=== PATIENT | female | born 1980 | race Caucasian/White ===

== ENCOUNTER → 2021-12-02 09:02 | Outpatient (BNVA) | payer OTHER, SELFPAY | PROVIDERS: Visit Provider Psychiatry & Neurology Neurology | DX: G43.909 Migraine, unspecified, not intractable, without status migrainosus (principal); M62.838 Other muscle spasm; G47.33 Obstructive sleep apnea (adult) (pediatric) | CPT/HCPCS: 99212 ==

== ENCOUNTER → 2022-06-29 12:48 | Outpatient (BNVA) | payer OTHER, SELFPAY | PROVIDERS: Visit Provider Psychiatry & Neurology Neurology | DX: G43.909 Migraine, unspecified, not intractable, without status migrainosus (principal); M62.838 Other muscle spasm; G47.33 Obstructive sleep apnea (adult) (pediatric) | CPT/HCPCS: 99212 ==

== ENCOUNTER 2023-02-17 09:28 | Outpatient (AMB) | payer OTHER, SELFPAY ==
--- NOTE | 2023-02-17 09:35 | A.OFFVIS_ITS ---
Intake Vital Signs 02/17/23 09:43 Weight 175 lb 8 oz BP 120/88 Blood Pressure Location Lt brachial Position Sitting Pulse 104 H Pulse Source Pulse Oximeter Pulse Oximetry (%) 98 Oxygen Delivery Method Room Air Intake Visit Reasons: Follow up Intake Note: F?U KARINA [employer] Hand Required: No Allergies acetaminophen [From Percocet] Allergy (Severe, Verified 02/17/23 09:36) Vomiting doxycycline Allergy (Severe, Verified 02/17/23 09:36) rash ibuprofen Allergy (Severe, Verified 02/17/23 09:36) Vomiting nifedipine Allergy (Severe, Verified 02/17/23 09:36) Vomiting oxycodone [From Percocet] Allergy (Severe, Verified 02/17/23 09:36) Vomiting promethazine [From Phenergan] Allergy (Severe, Verified 02/17/23 09:36) dystonic reaction levaquin Allergy (Uncoded 02/17/23 09:36) Unknown HPI HPI Comments History of Present Illness Details 42 y/o female with muscle spasms, migraines, KARINA presents for follow up. Pt reports that she restarted using CPAP a week ago. Pt still having difficulty staying sleep, but she can sleep 5-6 hours some day. Pt reports 3 migraine days per week. She has pounding frontal and occipital headache with light sensitivity. Pt tried sumatriptan but did not help to stop her headache. She uses diclofenac or resting in the dark room to manage headache. She was on Botox for migraine in the past and it was helpful. Pt tried topiramate, nortriptyline but failed for migraine prevention. Gabapentin 600 mg TID helps a lot for muscle twitching. PFSH Medical History Anemia Anxiety Arrhythmia Arthritis CHF (congestive heart failure) Depression GERD (gastroesophageal reflux disease) HTN (hypertension) Kidney stone Migraine Obstructive sleep apnea PTSD (post-traumatic stress disorder) Renal tubular acidosis Surgical History Hx of cholecystectomy Hx of hysterectomy Family History Father Migraine Mother Asthma Allergy Thyroid disease Family/Other Migraine Social History (Updated 02/17/23 @ 09:43 by Marylou Velasco CMA) Alcohol intake: never Patient Tobacco Use Status: Current everyday Tobacco user Review of Systems Const All systems reviewed & are unremarkable except as noted in HPI and below Physical Exam Vital Signs: Last Vital Signs Pulse 104 H 02/17/23 09:43 BP 120/88 02/17/23 09:43 Pulse Ox 98 02/17/23 09:43 Oxygen Delivery Method Room Air 02/17/23 09:43 Const General: cooperative, healthy appearing, comfortable and no acute distress Nutritional Appearance: average body habitus Orientation/consciousness: patient oriented x3 HEENT Head: Yes normal to inspection, Yes normocephalic and Yes atraumatic Face and sinus: Yes normal facial exam Eyes Pupils: Equal, round and reactive pupils present Neck Other: tightness in shalonda trapezius Neck: Yes normal visual inspection Neuro General: patient oriented x3, gait normal, tone normal, moves all extremities, no focal motor deficits and CN's II-XI intact bilaterally Cranial nerves: Yes Equal, round and reactive pupils present and Yes Normal facial strength present Cognition (Neuro): normal cognition Deep tendon reflexes (DTR's): Right triceps reflex intensity grade: 2+, Left triceps reflex intensity grade: 2+, Rt Biceps (C5, C6): 2+, Left biceps reflex intensity grade: 2+, Right brachioradialis reflex intensity grade: 2+, Left brachioradialis reflex intensity grade: 2+, Right patellar reflex intensity grade: 2+ and Left patellar reflex intensity grade: 2+ Coordination: [id number] test normal Assessment & Plan Assessment & Plan (1) Migraine: Code(s): G43.909 - Migraine, unspecified, not intractable, without status migrainosus (2) Muscle spasm: Code(s): M62.838 - Other muscle spasm (3) Obstructive sleep apnea: Code(s): G47.33 - Obstructive sleep apnea (adult) (pediatric) Plan Continue to use CPAP as it can help with sleep and migraines, muscle spasms. Stressed compliance, use CPAP nightly and more than 4 hours. Continue to take gabapentin 300mg 2 tabs tid for muscle spasm. Continue flexeril 5mg tid. Start propranolol 10 mg BID for migraine prevention. Advised patient to track migraine frequency and intensity. Will consider Botox of Emgality at the next visit. Medications: New propranolol 10 mg PO BID 30 days 60 tabs 1RF Coding Level of Care Code Est Pt Level 4 (62620) Diagnoses Migraine G43.909 Muscle spasm M62.838 Obstructive sleep apnea G47.33
[2023-02-17 09:43] VITALS: BP 120/88; PULSE 104; O2SAT 98
== END 2023-02-17 10:06 | disposition home or self-care (01) ==
PROVIDERS: Visit Provider Nurse Practitioner Family
DX: G43.909 Migraine, unspecified, not intractable, without status migrainosus (principal); M62.838 Other muscle spasm; G47.33 Obstructive sleep apnea (adult) (pediatric)
CPT/HCPCS: 99214

== ENCOUNTER → 2023-02-17 09:28 | Outpatient (BNVA) | payer OTHER, SELFPAY | PROVIDERS: Visit Provider Nurse Practitioner Family ==

== ENCOUNTER 2023-05-03 09:59 | Outpatient (AMB) | payer OTHER, SELFPAY ==
[2023-05-03 10:01] VITALS: BP 114/72; PULSE 101; O2SAT 98; BMI 31.3
--- NOTE | 2023-05-03 10:01 | MHC.OFFVIS ---
Intake Vital Signs 05/03/23 10:01 Height 5 ft 3 in Weight 176 lb 8 oz BMI 31.3 BP 114/72 Blood Pressure Location Lt brachial Position Sitting Pulse 101 H Pulse Source Pulse Oximeter Pulse Oximetry (%) 98 Oxygen Delivery Method Room Air Intake Visit Reasons: 2m Follow up -LVM Intake Note: Pt presents to the office today for a 2 month follow up for migraines. Pt states she has been doing a little better with the medication that she was given. Pt states her migraines only last about 2 days instead of 4 since taking the medications. Pt states her migraines are more intense though when she has them. Allergies acetaminophen [From Percocet] Allergy (Severe, Verified 05/03/23 10:03) Vomiting doxycycline Allergy (Severe, Verified 05/03/23 10:03) rash ibuprofen Allergy (Severe, Verified 05/03/23 10:03) Vomiting nifedipine Allergy (Severe, Verified 05/03/23 10:03) Vomiting oxycodone [From Percocet] Allergy (Severe, Verified 05/03/23 10:03) Vomiting promethazine [From Phenergan] Allergy (Severe, Verified 05/03/23 10:03) dystonic reaction levaquin Allergy (Uncoded 05/03/23 10:03) Unknown HPI HPI Comments History of Present Illness Details 42 y/o female with muscle spasms, migraines, KARINA presents for follow up. Pt is not compliant CPAP. She can't sleep with CPAP, wants to discontinue. Pt reports that propranolol helped to reduce the migraine frequency a little bit but caused more intense headache. Pt reports that still has 2-3 migraine days per week. She has pounding frontal and occipital headache with light sensitivity. Pt tried sumatriptan but did not help to stop her headache. She uses Tylenol 1000 mg daily for body ache, and it also helps her headache a little bit. She was on Botox for migraine in the past and it was helpful. Pt tried topiramate, nortriptyline but failed for migraine prevention. Gabapentin 600 mg TID helps a lot for muscle twitching. [facility] Medical History Arrhythmia CHF (congestive heart failure) PTSD (post-traumatic stress disorder) Kidney stone Renal tubular acidosis HTN (hypertension) GERD (gastroesophageal reflux disease) Anxiety Depression Obstructive sleep apnea Migraine Arthritis Anemia Surgical History Hx of hysterectomy Hx of cholecystectomy Family History Father Migraine Mother Asthma Allergy Thyroid disease Family/Other Migraine Social History (Updated 05/03/23 @ 10:05 by Laquita Lau MA) Alcohol intake: never Patient Tobacco Use Status: Former Tobacco user e-Cigarette/Vaping Use: Currently Using Review of Systems Const All systems reviewed & are unremarkable except as noted in HPI and below Physical Exam Vital Signs: Last Vital Signs Pulse 101 H 05/03/23 10:01 BP 114/72 05/03/23 10:01 Pulse Ox 98 05/03/23 10:01 Oxygen Delivery Method Room Air 05/03/23 10:01 BMI result Body Mass Index 31.3 Const General: cooperative, healthy appearing, comfortable and no acute distress Nutritional Appearance: average body habitus Orientation/consciousness: patient oriented x3 HEENT Head: Yes normal to inspection, Yes normocephalic and Yes atraumatic Face and sinus: Yes normal facial exam Eyes Pupils: Equal, round and reactive pupils present Neck Other: tightness in shalonda trapezius Neck: Yes normal visual inspection Neuro General: patient oriented x3, gait normal, tone normal, moves all extremities, no focal motor deficits and CN's II-XI intact bilaterally Cranial nerves: Yes Equal, round and reactive pupils present and Yes Normal facial strength present Cognition (Neuro): normal cognition Deep tendon reflexes (DTR's): Right triceps reflex intensity grade: 2+, Left triceps reflex intensity grade: 2+, Rt Biceps (C5, C6): 2+, Left biceps reflex intensity grade: 2+, Right brachioradialis reflex intensity grade: 2+, Left brachioradialis reflex intensity grade: 2+, Right patellar reflex intensity grade: 2+ and Left patellar reflex intensity grade: 2+ Coordination: [id number] test normal Assessment & Plan Assessment & Plan (1) Muscle spasm: Code(s): M62.838 - Other muscle spasm (2) Obstructive sleep apnea: Code(s): G47.33 - Obstructive sleep apnea (adult) (pediatric) (3) Chronic migraine without aura: Code(s): G43.709 - Chronic migraine without aura, not intractable, without status migrainosus Plan Advised patient to try Emgality monthly injection for migraine prevention. Continue to take gabapentin 300mg 5 tabs a day for muscle spasm. Continue flexeril 5mg tid. Continue propranolol 10 mg BID for migraine prevention. Advised patient to track migraine frequency and intensity. Medications: New galcanezumab-gnlm (Emgality Pen) 120 mg subcut ONCE 30 days 30 mL 6RF Coding Level of Care Code Est Pt Level 4 (16799) Diagnoses Muscle spasm M62.838 Obstructive sleep apnea G47.33 Chronic migraine without aura G43.709
== END 2023-05-03 10:35 | disposition home or self-care (01) ==
PROVIDERS: Visit Provider Nurse Practitioner Family
DX: M62.838 Other muscle spasm (principal); G47.33 Obstructive sleep apnea (adult) (pediatric); G43.709 Chronic migraine without aura, not intractable, without status migrainosus
CPT/HCPCS: 99214

== ENCOUNTER → 2023-05-03 09:59 | Outpatient (BNVA) | payer OTHER, SELFPAY | PROVIDERS: Visit Provider Nurse Practitioner Family ==

== ENCOUNTER 2023-09-04 09:26 | Outpatient (AMB) | payer OTHER, SELFPAY ==
--- NOTE | 2023-09-04 09:42 | MHC.OFFVIS ---
Intake Vital Signs 09/04/23 09:49 Height 5 ft 3 in Weight 177 lb BMI 31.4 BP 110/78 Blood Pressure Location Lt brachial Position Sitting Pulse 98 Pulse Source Pulse Oximeter Pulse Oximetry (%) 99 Oxygen Delivery Method Room Air Intake Visit Reasons: 4 mo f/u-Confirmed Intake Note: Patient presents for 4 month f/u. Allergies acetaminophen [From Percocet] Allergy (Severe, Verified 09/04/23 09:45) Vomiting doxycycline Allergy (Severe, Verified 09/04/23 09:45) rash ibuprofen Allergy (Severe, Verified 09/04/23 09:45) Vomiting nifedipine Allergy (Severe, Verified 09/04/23 09:45) Vomiting oxycodone [From Percocet] Allergy (Severe, Verified 09/04/23 09:45) Vomiting promethazine [From Phenergan] Allergy (Severe, Verified 09/04/23 09:45) dystonic reaction levaquin Allergy (Uncoded 05/03/23 10:03) Unknown HPI HPI Comments History of Present Illness Details 43 y/o female with muscle spasms, migraines, KARINA presents for follow up. Pt is not compliant CPAP. She can't sleep with CPAP, so she returned CPAP. Pt reports that propranolol helped to reduce the migraine frequency but caused more intense headache. Pt reports that still has 2-3 migraine days per week. She has pounding frontal and occipital headache with light sensitivity. Pt tried sumatriptan but did not help to stop her headache. She uses Tylenol 1000 mg daily for body ache, and it also helps her headache a little bit. She was on Botox for migraine in the past and it was helpful. Pt tried topiramate, nortriptyline but failed for migraine prevention. She started Emgality injection for migraine prevention. She had first dose on 08/16. Gabapentin 600 mg TID helps a lot for muscle twitching. [facility] Medical History Arrhythmia CHF (congestive heart failure) PTSD (post-traumatic stress disorder) Kidney stone Renal tubular acidosis HTN (hypertension) GERD (gastroesophageal reflux disease) Anxiety Depression Obstructive sleep apnea Migraine Arthritis Anemia Surgical History Hx of hysterectomy Hx of cholecystectomy Family History Father Migraine Mother Asthma Allergy Thyroid disease Family/Other Migraine Social History Alcohol intake: never Patient Tobacco Use Status: Former Tobacco user e-Cigarette/Vaping Use: Currently Using Review of Systems Const All systems reviewed & are unremarkable except as noted in HPI and below Physical Exam Vital Signs: Last Vital Signs Pulse 98 09/04/23 09:49 BP 110/78 09/04/23 09:49 Pulse Ox 99 09/04/23 09:49 Oxygen Delivery Method Room Air 09/04/23 09:49 BMI result Body Mass Index 31.4 Const General: cooperative, healthy appearing, comfortable and no acute distress Nutritional Appearance: average body habitus Orientation/consciousness: patient oriented x3 HEENT Head: Yes normal to inspection, Yes normocephalic and Yes atraumatic Face and sinus: Yes normal facial exam Eyes Pupils: Equal, round and reactive pupils present Neck Other: tightness in shalonda trapezius Neck: Yes normal visual inspection Neuro General: patient oriented x3, gait normal, tone normal, moves all extremities, no focal motor deficits and CN's II-XI intact bilaterally Cranial nerves: Yes Equal, round and reactive pupils present and Yes Normal facial strength present Cognition (Neuro): normal cognition Deep tendon reflexes (DTR's): Right triceps reflex intensity grade: 2+, Left triceps reflex intensity grade: 2+, Rt Biceps (C5, C6): 2+, Left biceps reflex intensity grade: 2+, Right brachioradialis reflex intensity grade: 2+, Left brachioradialis reflex intensity grade: 2+, Right patellar reflex intensity grade: 2+ and Left patellar reflex intensity grade: 2+ Coordination: [id number] test normal Assessment & Plan Assessment & Plan (1) Muscle spasm: Code(s): M62.838 - Other muscle spasm (2) Obstructive sleep apnea: Code(s): G47.33 - Obstructive sleep apnea (adult) (pediatric) (3) Chronic migraine without aura: Code(s): G43.709 - Chronic migraine without aura, not intractable, without status migrainosus Plan Continue to have monthly Emgality and mornitor the migraine frequency and intensity. Continue propranolol 10 mg BID, magnesium 400 mg qHS and vitamin B2 400 mg q daily for migraine prevention. Advised patient to track migraine frequency and intensity. Will try Botox if Emgality does not help to reduce migraine. Continue to take gabapentin 600 mg TID for muscle spasm and twitching. Continue flexeril 5mg tid. Wt reduction advised. Medications: New riboflavin (vitamin B2) 400 mg PO DAILY 30 tabs 6RF 30 days Coding Level of Care Code Est Pt Level 4 (99600) Diagnoses Muscle spasm M62.838 Obstructive sleep apnea G47.33 Chronic migraine without aura G43.709
[2023-09-04 09:49] VITALS: BP 110/78; PULSE 98; O2SAT 99; BMI 31.4
== END 2023-09-04 10:06 | disposition home or self-care (01) ==
PROVIDERS: Visit Provider Nurse Practitioner Family
DX: M62.838 Other muscle spasm (principal); G47.33 Obstructive sleep apnea (adult) (pediatric); G43.709 Chronic migraine without aura, not intractable, without status migrainosus
CPT/HCPCS: 99214

== ENCOUNTER → 2023-09-04 09:26 | Outpatient (BNVA) | payer OTHER, SELFPAY | PROVIDERS: Visit Provider Nurse Practitioner Family ==

== ENCOUNTER 2024-01-01 09:50 | Outpatient (AMB) | payer OTHER, SELFPAY ==
[2024-01-01 09:58] VITALS: BP 94/72; PULSE 89; O2SAT 99; BMI 32.4
--- NOTE | 2024-01-01 09:58 | A.OFFVIS_ITS ---
Vital Signs 01/01/24 09:58 Height 5 ft 3 in Weight 183 lb BMI 32.4 BP 94/72 Blood Pressure Location Rt brachial Position Sitting Pulse 89 Pulse Source Pulse Oximeter Pulse Oximetry (%) 99 Oxygen Delivery Method Room Air Intake Visit Reasons: 4m follow up migraine-CONF Intake Note: Patient presents for 4 month follow up migraines. patient still having headaches, had a reaction to emgality had a rash around the belly she stopped the shots. Allergies acetaminophen [From Percocet] Allergy (Severe, Verified 01/01/24 10:03) Vomiting doxycycline Allergy (Severe, Verified 01/01/24 10:03) rash ibuprofen Allergy (Severe, Verified 01/01/24 10:03) Vomiting nifedipine Allergy (Severe, Verified 01/01/24 10:03) Vomiting oxycodone [From Percocet] Allergy (Severe, Verified 01/01/24 10:03) Vomiting promethazine [From Phenergan] Allergy (Severe, Verified 01/01/24 10:03) dystonic reaction levaquin Allergy (Uncoded 01/01/24 10:03) Unknown Medication List - Last Reconciled 01/01/24 by CARINA Campos amlodipine 5 mg PO DAILY buspirone 15 mg PO TID cyanocobalamin (vitamin B-12) (Vitamin B-12) 500 mcg PO DAILY cyclobenzaprine 5 mg PO TID PRN desvenlafaxine succinate ER (Pristiq) 50 mg PO DAILY diclofenac sodium 75 mg PO BID fluoxetine 40 mg PO DAILY gabapentin 600 mg (2 x 300 mg) PO TID 30 days galcanezumab-gnlm (Emgality Pen) 120 mg subcut ONCE 30 days hydrochlorothiazide 25 mg PO DAILY levothyroxine 50 mcg PO DAILY magnesium oxide 400 mg PO DAILY multivitamin (Daily Multi-Vitamin tablet) 1 tab PO DAILY ondansetron HCl 8 mg PO Q12H pantoprazole 20 mg PO DAILY pilocarpine HCl 7.5 mg PO BID PRN potassium citrate ER 10 mEq PO TID prazosin 1 mg PO BEDTIME propranolol 10 mg PO BID 90 days pyridoxine (vitamin B6) (Vitamin B-6) 100 mg PO DAILY riboflavin (vitamin B2) 400 mg PO DAILY 30 days trazodone 100 mg PO BEDTIME HPI Comments Details: 43-yr-old female presents for f/u visit of migraine. Pt denies any significant interval medical changes. Pt reports she started Emgality, took 3 doses. Unfortunately, it was not very effective and caused prolonged bothersome injection site reaction despite trying to take Benadryl w/ the injection. She is currently having 3 migraine days (severe migraine attack can last 3 days), 2-3 milder headache, and 1-2 headache free days per week. She has chronic neck tightness. No shooting pain. She was dx'd w/ sleep apnea several yrs ago. Did not tolerate CPAP. Still has snoring, fatigue. She sees a therapist for her mood weekly- which is beneficial. Baseline headache characteristics: Starts as a dull throbbing pain in her bilateral temples and occipital region- more so on left, if severe may see lightening bolts, then her head feels like it starts to swim a bit,. May be f/b sharp stabbing pains in bilateral temples and left occipital region. Eventually this becomes holocranial. A/w photophobia, mild phonophobia, nausea, dizziness- feels like she is drifting w/ movement or external spinning, cognitive difficulties, activity intolerance. [facility] Medical History Arrhythmia CHF (congestive heart failure) PTSD (post-traumatic stress disorder) Kidney stone Renal tubular acidosis HTN (hypertension) GERD (gastroesophageal reflux disease) Anxiety Depression Obstructive sleep apnea Migraine Arthritis Anemia Surgical History Hx of hysterectomy Hx of cholecystectomy Family History Father Migraine Mother Asthma Allergy Thyroid disease Family/Other Migraine Social History Alcohol intake: never Patient Tobacco Use Status: Former Tobacco user e-Cigarette/Vaping Use: Currently Using Physical Exam Vital Signs: Last Vital Signs Pulse 89 01/01/24 09:58 BP 94/72 01/01/24 09:58 Pulse Ox 99 01/01/24 09:58 Oxygen Delivery Method Room Air 01/01/24 09:58 BMI result Body Mass Index 32.4 Const General: cooperative and no acute distress Orientation/consciousness: patient oriented x3 Resp Effort & Inspection: normal respiratory effort and able to speak in complete sentences Neuro Other: Bilateral posterior cervical tightness. Cervical ROM: full Left Spurling: normal Right Spurling: normal. General: patient oriented x3 Cranial nerves: Yes CN's II-XII intact bilaterally Cognition (Neuro): normal cognition Psych Appearance: grossly normal Mental Status: mental status grossly normal Speech and movement: Normal speech and movement present Affect: normal affect Attitude: cooperative Assessment & Plan Assessment & Plan (1) Chronic migraine without aura: Code(s): G43.709 - Chronic migraine without aura, not intractable, without status migrainosus Category: Medical (2) Migraine with aura: Code(s): G43.109 - Migraine with aura, not intractable, without status migrainosus Category: Medical (3) Obstructive sleep apnea: Code(s): G47.33 - Obstructive sleep apnea (adult) (pediatric) Category: Medical (4) Fatigue: Code(s): R53.83 - Other fatigue Category: Medical (5) Snoring: Code(s): R06.83 - Snoring Category: Medical Plan Pt advised to undergo HST to assess status of sleep apnea. For overall headache management: Continue to optimize good self-care, including but not limited to eating a healthy diet, drinking enough fluids (typically 64 oz per day), maintaining a good sleep routine, and engaging in regular physical activity (typically 30-45 minutes of moderate physical activity 5 days per week). To help us better understand your headache: Track your headaches. For acute headache treatment: Trial Rizatriptan 5-10mg prn, max 2 tabs per day. Potential adverse effects of triptans, including but not limited to nausea, fatigue, chest tightness/tingling (usually passes within a few minutes), medication overuse headaches. Previous acute migraine medication trials: Promethazine caused dystonia. Sumatriptan- not tolerated- GI s/e. Acute migraine medication contraindications: None at this time. For chronic migraine headache prevention medication: Continue Riboflavin 400mg qam Continue Magnesium 400mg qhs Continue propranolol 10mg bid- tolerated welll, but cannot increase d/t hypotensive BP. Start Botox 155 units IM q 12 weeks. Previous migraine prevention medication trials: Nortriptyline- ineffective after > 12 weeks. Topiramate- ineffective after > 12 weeks, Depakote- not tolerated, made her headaches worse. Emgality- ineffective after 3 months and caused bother injection site reaction. Currently on Pritiq for mood/anxiety- but does not help headaches. Gabapentin- used for muscle twitching/involuntary movements, but not very helpful for headaches. Botox- previously was helpful in reducing severity and frequency of attacks. Migraine prevention medication contraindications: Topiramate d/t h/o multiple kidney stones. Follow-up in 3-6 months or sooner prn. Orders: Orders RT home sleep study 01/01/24 G47.33 - Obstructive sleep apnea (adult) (pediatric), R06.83 - Snoring, R53.83 - Other fatigue Medications: New onabotulinumtoxinA (Botox) inject 155 units IM across forehead, scalp, and neck 200 units IM ONCE 1 ea 3RF 12 weeks G43.709 - Chronic migraine without aura, not intractable, without status migrainosus rizatriptan max 2 tabs per day or 4 tabs per week 5 - 10 mg (0.5 - 1 x 10 mg) PO Q2H PRN 12 tabs 3RF migraine headache 30 days Coding Level of Care Code Est Pt Level 4 (59215) Diagnoses Chronic migraine without aura G43.709 Migraine with aura G43.109 Obstructive sleep apnea G47.33 Fatigue R53.83 Snoring R06.83
== END 2024-01-01 10:58 | disposition home or self-care (01) ==
PROVIDERS: Visit Provider Nurse Practitioner Family
DX: G43.709 Chronic migraine without aura, not intractable, without status migrainosus (principal); G43.109 Migraine with aura, not intractable, without status migrainosus; G47.33 Obstructive sleep apnea (adult) (pediatric); R53.83 Other fatigue; R06.83 Snoring
CPT/HCPCS: 99214

== ENCOUNTER → 2024-01-01 09:50 | Outpatient (BNVA) | payer OTHER, SELFPAY | PROVIDERS: Visit Provider Nurse Practitioner Family ==

== ENCOUNTER → 2024-02-08 12:58 | Outpatient (REF) | payer OTHER, SELFPAY | LOC: HO.SL 12:58 | PROVIDERS: PCP Family Medicine; Visit Provider Nurse Practitioner Family | DX: Z13.89 Encounter for screening for other disorder (principal) ==

== ENCOUNTER 2024-03-29 08:55 | Outpatient (AMB) | payer OTHER, SELFPAY ==
--- NOTE | 2024-03-29 09:00 | A.OFFVIS_ITS ---
Vital Signs 03/29/24 09:01 Height 5 ft 3 in Weight 182 lb 6 oz BMI 32.3 BP 112/62 Blood Pressure Location Rt brachial Position Sitting Respiration 16 Pulse 94 Pulse Source Pulse Oximeter Pulse Oximetry (%) 99 Oxygen Delivery Method Room Air Intake Visit Reasons: Botox Intake Note: Pt presents to the office for Botox injections for chronic migraines. Automatic Packer Operator Required: No Allergies acetaminophen [From Percocet] Allergy (Severe, Verified 03/29/24 09:01) Vomiting doxycycline Allergy (Severe, Verified 03/29/24 09:01) rash ibuprofen Allergy (Severe, Verified 03/29/24 09:01) Vomiting nifedipine Allergy (Severe, Verified 03/29/24 09:01) Vomiting oxycodone [From Percocet] Allergy (Severe, Verified 03/29/24 09:01) Vomiting promethazine [From Phenergan] Allergy (Severe, Verified 03/29/24 09:01) dystonic reaction levaquin Allergy (Uncoded 03/29/24 09:01) Unknown Medication List - Last Reconciled 03/29/24 by Cleo Santamaria MD amlodipine 5 mg PO DAILY buspirone 15 mg PO TID cholecalciferol (vitamin D3) 50 mcg PO DAILY cyanocobalamin (vitamin B-12) (Vitamin B-12) 500 mcg PO DAILY cyclobenzaprine 10 mg PO TID PRN desvenlafaxine succinate ER (Pristiq) 50 mg PO DAILY diclofenac sodium 75 mg PO BID fluoxetine 60 mg PO DAILY gabapentin 600 mg (2 x 300 mg) PO TID 30 days hydrochlorothiazide 25 mg PO DAILY levothyroxine 50 mcg PO DAILY magnesium oxide 400 mg PO DAILY multivitamin (Daily Multi-Vitamin tablet) 1 tab PO DAILY onabotulinumtoxinA (Botox) 200 units IM ONCE 12 weeks ondansetron HCl 8 mg PO Q12H pantoprazole 20 mg PO DAILY pilocarpine HCl 7.5 mg PO BID PRN potassium citrate ER 10 mEq PO TID prazosin 1 mg PO BEDTIME propranolol 10 mg PO BID 90 days pyridoxine (vitamin B6) (Vitamin B-6) 100 mg PO DAILY riboflavin (vitamin B2) 400 mg PO DAILY 30 days rizatriptan 5 - 10 mg (0.5 - 1 x 10 mg) PO Q2H PRN 30 days trazodone 100 mg PO BEDTIME HPI Comments Details: ? 44y/o female comes for treatment of migraines with botox. ??? Most frequent reported adverse reactions following injection of botox for chronic migraine include neck pain (9%), headache(5%), eyelid ptosis(4%), migraine(4%), muscular weakness(4%), musculuskeletal stiffness(4%), bronchitis(3%), injection site pain (3%), musculoskeletal pain(3%), myalgia(3%), facial paresis(2%), HTN(2%) and muscle spasms(2%) were discussed in detail. ??? Botulinum toxin typeA 200units Lot no [id number] expiration Jun 2026 was diluted with 4 cc of normal saline . ??? Muscles injected- ??? Frontalis 4 sites ??? Procerus 1 site ??? Salesperson Handbags- 2 sites ??? Temporalis- 8 sites ??? Occipitalis- 6 sites ??? Cervical paraspinals- 4 sites ??? Trapezius- 6 sites- 10 units each ??? 5 units each in 31 site ??? Total use- 185units ??? Discarded-15units [facility] Medical History (Updated 03/29/24 @ 09:35 by Cleo Santamaria MD) Chronic migraine without aura, intractable, without status migrainosus Arrhythmia CHF (congestive heart failure) PTSD (post-traumatic stress disorder) Kidney stone Renal tubular acidosis HTN (hypertension) GERD (gastroesophageal reflux disease) Anxiety Depression Obstructive sleep apnea Migraine Arthritis Anemia Surgical History Hx of hysterectomy Hx of cholecystectomy Family History Father Migraine Mother Asthma Allergy Thyroid disease Family/Other Migraine Social History Alcohol intake: never Patient Tobacco Use Status: Former Tobacco user e-Cigarette/Vaping Use: Currently Using Physical Exam Vital Signs: Last Vital Signs Pulse 94 03/29/24 09:01 Resp 16 03/29/24 09:01 BP 112/62 03/29/24 09:01 Pulse Ox 99 03/29/24 09:01 Oxygen Delivery Method Room Air 03/29/24 09:01 BMI result Body Mass Index 32.3 Const General: cooperative and no acute distress Orientation/consciousness: patient oriented x3 Resp Effort & Inspection: normal respiratory effort and able to speak in complete sentences Neuro Other: Bilateral posterior cervical tightness. Cervical ROM: full Left Spurling: normal Right Spurling: normal. General: patient oriented x3 Cranial nerves: Yes CN's II-XII intact bilaterally Cognition (Neuro): normal cognition Psych Appearance: grossly normal Mental Status: mental status grossly normal Speech and movement: Normal speech and movement present Affect: normal affect Attitude: cooperative Office Procedures Botulinum toxin Injection 49366 - Migraine Procedure code (CPT) selection complete Office Meds onabotulinumtoxinA 200 unit solution for injection Performing Provider: Cleo Santamaria MD Performing Location[place] [facility] [place] [facility] Administered by: Cleo Santamaria MD on 03/29/24 09:39 Dose Route Admin Location Dispensed Lot Number Expiration Date [facility] Securities Sales Associate 200 unit subcut 200 units [id number] 06/23/26 6533-0856-69 [employer]ERGAN/BOTOX Comments: see hpi Assessment & Plan Assessment & Plan (1) Chronic migraine without aura, intractable, without status migrainosus: Code(s): G43.719 - Chronic migraine without aura, intractable, without status migrainosus Category: Medical Plan Patient tolerated the procedure well she will call with any side effects Orders: Orders AMB Botulinum toxin Injection Today G43.719 - Chronic migraine without aura, intractable, without status migrainosus Medications: New onabotulinumtoxinA 200 units subcut ONCE 1 ea 0RF migraine G43.719 - Chronic migraine without aura, intractable, without status migrainosus Coding Level of Care Code Est Pt Level 1 (76148) Diagnoses Chronic migraine without aura, intractable, without status migrainosus G43.719 CPT Codes Botox Injection - Botox 3: 64510 - Migraine ([id number])
[2024-03-29 09:01] VITALS: BP 112/62; PULSE 94; RESP 16; O2SAT 99; BMI 32.3
== END 2024-03-29 09:25 | disposition home or self-care (01) ==
PROVIDERS: PCP Family Medicine; Visit Provider Psychiatry & Neurology Neurology
DX: G43.719 Chronic migraine without aura, intractable, without status migrainosus (principal)
CPT/HCPCS: 64615

== ENCOUNTER → 2024-03-29 08:55 | Outpatient (BNVA) | payer OTHER, SELFPAY | PROVIDERS: PCP Family Medicine; Visit Provider Psychiatry & Neurology Neurology | DX: G43.719 Chronic migraine without aura, intractable, without status migrainosus (principal) | CPT/HCPCS: 64615; 99211; J0585 ==

== ENCOUNTER 2024-07-08 07:57 | Outpatient (AMB) | payer OTHER, SELFPAY ==
--- NOTE | 2024-07-08 08:01 | A.OFFVIS_ITS ---
Vital Signs 07/08/24 08:02 Height 5 ft 3 in BP 108/72 Blood Pressure Location Rt brachial Position Sitting Pulse 89 Pulse Source Pulse Oximeter Pulse Oximetry (%) 98 Oxygen Delivery Method Room Air Intake Visit Reasons: BOTOX Clerk To Justice Required: No Accompanied by: Self / Same As Patient Allergies acetaminophen [From Percocet] Allergy (Severe, Verified 07/08/24 08:06) Vomiting doxycycline Allergy (Severe, Verified 07/08/24 08:06) rash ibuprofen Allergy (Severe, Verified 07/08/24 08:06) Vomiting nifedipine Allergy (Severe, Verified 07/08/24 08:06) Vomiting oxycodone [From Percocet] Allergy (Severe, Verified 07/08/24 08:06) Vomiting promethazine [From Phenergan] Allergy (Severe, Verified 07/08/24 08:06) dystonic reaction levaquin Allergy (Uncoded 03/29/24 09:01) Unknown Medication List - Last Reconciled 07/08/24 by Cleo Santamaria MD amlodipine 5 mg PO DAILY buspirone 15 mg PO TID cholecalciferol (vitamin D3) 50 mcg PO DAILY cyanocobalamin (vitamin B-12) (Vitamin B-12) 500 mcg PO DAILY cyclobenzaprine 10 mg PO TID PRN desvenlafaxine succinate ER (Pristiq) 50 mg PO DAILY diclofenac sodium 75 mg PO BID fluoxetine 60 mg PO DAILY gabapentin 600 mg (2 x 300 mg) PO TID 30 days hydrochlorothiazide 25 mg PO DAILY levothyroxine 50 mcg PO DAILY magnesium oxide 400 mg PO DAILY multivitamin (Daily Multi-Vitamin tablet) 1 tab PO DAILY onabotulinumtoxinA (Botox) 200 units IM ONCE 12 weeks ondansetron HCl 8 mg PO Q12H pantoprazole 20 mg PO DAILY pilocarpine HCl 7.5 mg PO BID PRN potassium citrate ER 10 mEq PO TID prazosin 1 mg PO BEDTIME propranolol 10 mg PO BID 90 days pyridoxine (vitamin B6) (Vitamin B-6) 100 mg PO DAILY riboflavin (vitamin B2) 400 mg PO DAILY 30 days rizatriptan 5 - 10 mg (0.5 - 1 x 10 mg) PO Q2H PRN 30 days trazodone 100 mg PO BEDTIME Do you need a note to return to daycare/school/sports/work: No HPI Comments Details: ? 44y/o female comes for treatment of migraines with botox. ??? Most frequent reported adverse reactions following injection of botox for chronic migraine include neck pain (9%), headache(5%), eyelid ptosis(4%), migraine(4%), muscular weakness(4%), musculuskeletal stiffness(4%), bronchitis(3%), injection site pain (3%), musculoskeletal pain(3%), myalgia(3%), facial paresis(2%), HTN(2%) and muscle spasms(2%) were discussed in detail. ??? Botulinum toxin typeA 200units Lot no [id number] expiration Mar 2026 was diluted with 4 cc of normal saline . ??? Muscles injected- ??? Frontalis 4 sites ??? Procerus 1 site ??? Chief Business Officer- 2 sites ??? Temporalis- 8 sites ??? Occipitalis- 6 sites ??? Cervical paraspinals- 4 sites ??? Trapezius- 6 sites- 10 units each ??? 5 units each in 31 site ??? Total use- 185units ??? Discarded-15units PFS Medical History Chronic migraine without aura, intractable, without status migrainosus Arrhythmia CHF (congestive heart failure) PTSD (post-traumatic stress disorder) Kidney stone Renal tubular acidosis HTN (hypertension) GERD (gastroesophageal reflux disease) Anxiety Depression Obstructive sleep apnea Migraine Arthritis Anemia Surgical History Hx of hysterectomy Hx of cholecystectomy Family History Father Migraine Mother Asthma Allergy Thyroid disease Family/Other Migraine Social History Alcohol intake: never Patient Tobacco Use Status: Former Tobacco user e-Cigarette/Vaping Use: Currently Using Physical Exam Vital Signs: Last Vital Signs Pulse 89 07/08/24 08:02 BP 108/72 07/08/24 08:02 Pulse Ox 98 07/08/24 08:02 Oxygen Delivery Method Room Air 07/08/24 08:02 Const General: cooperative and no acute distress Orientation/consciousness: patient oriented x3 Resp Effort & Inspection: normal respiratory effort and able to speak in complete sentences Neuro Other: Bilateral posterior cervical tightness. Cervical ROM: full Left Spurling: normal Right Spurling: normal. General: patient oriented x3 Cranial nerves: Yes CN's II-XII intact bilaterally Cognition (Neuro): normal cognition Psych Appearance: grossly normal Mental Status: mental status grossly normal Speech and movement: Normal speech and movement present Affect: normal affect Attitude: cooperative Office Procedures Botulinum toxin Injection 31005 - Migraine Procedure code (CPT) selection complete Office Meds onabotulinumtoxinA 200 unit solution for injection Performing Provider: Cleo Santamaria MD Performing Location: [facility] [place] [facility] Administered by: Cleo Santamaria MD on 07/08/24 08:33 Dose Route Admin Location Dispensed Lot Number Expiration Date [facility] Packaging Engineer 185 unit subcut 200 units [id number] ALLERGAN/BOTOX Comments: see HPI Assessment & Plan Assessment & Plan (1) Chronic migraine without aura, intractable, without status migrainosus: Code(s): G43.719 - Chronic migraine without aura, intractable, without status migrainosus Category: Medical Plan Patient tolerated the procedure well she will call with any side effects Orders: Orders AMB Botulinum toxin Injection Today G43.719 - Chronic migraine without aura, intractable, without status migrainosus Medications: New onabotulinumtoxinA 200 units subcut ONCE 1 ea 0RF migraine G43.719 - Chronic migraine without aura, intractable, without status migrainosus Coding Level of Care Code Est Pt Level 1 (72884) Diagnoses Chronic migraine without aura, intractable, without status migrainosus G43.719 CPT Codes Botox Injection - Botox 3: 56549 - Migraine ([id number])
[2024-07-08 08:02] VITALS: BP 108/72; PULSE 89; O2SAT 98
== END 2024-07-08 08:25 | disposition home or self-care (01) ==
PROVIDERS: PCP Family Medicine; Visit Provider Psychiatry & Neurology Neurology
DX: G43.719 Chronic migraine without aura, intractable, without status migrainosus (principal)
CPT/HCPCS: 64615

== ENCOUNTER → 2024-07-15 09:12 | Outpatient (REF) | payer OTHER, SELFPAY | LOC: HO.SL 09:12 | PROVIDERS: PCP Family Medicine; Visit Provider Nurse Practitioner Family | DX: G47.33 Obstructive sleep apnea (adult) (pediatric) (principal); R53.83 Other fatigue; R06.83 Snoring | CPT/HCPCS: 95806 ==

== ENCOUNTER → 2024-07-15 09:22 | Outpatient (REF) | payer OTHER, SELFPAY | LOC: HO.SL 09:22 | PROVIDERS: PCP Family Medicine; Visit Provider Nurse Practitioner Family | DX: Z13.89 Encounter for screening for other disorder (principal) ==

== ENCOUNTER 2024-10-15 07:31 | Outpatient (AMB) | payer OTHER, SELFPAY ==
[2024-10-15 07:36] VITALS: BP 118/78; BMI 29.4
--- NOTE | 2024-10-15 07:36 | A.OFFVIS_ITS ---
Vital Signs 10/15/24 07:36 Height 5 ft 3 in Weight 166 lb BMI 29.4 BP 118/78 Blood Pressure Location Rt brachial Position Sitting Intake Visit Reasons: BOTOX Intake Note: Patient presents for botox injection Practice supplied Allergies acetaminophen [From Percocet] Allergy (Severe, Verified 10/15/24 07:39) Vomiting doxycycline Allergy (Severe, Verified 10/15/24 07:39) rash ibuprofen Allergy (Severe, Verified 10/15/24 07:39) Vomiting nifedipine Allergy (Severe, Verified 10/15/24 07:39) Vomiting oxycodone [From Percocet] Allergy (Severe, Verified 10/15/24 07:39) Vomiting promethazine [From Phenergan] Allergy (Severe, Verified 10/15/24 07:39) dystonic reaction levaquin Allergy (Uncoded 10/15/24 07:39) Unknown Medication List - Last Reconciled 10/15/24 by Cleo Santamaria MD amlodipine 5 mg PO DAILY buspirone 15 mg PO TID cholecalciferol (vitamin D3) 50 mcg PO DAILY cyanocobalamin (vitamin B-12) (Vitamin B-12) 500 mcg PO DAILY cyclobenzaprine 10 mg PO TID PRN desvenlafaxine succinate ER (Pristiq) 50 mg PO DAILY diclofenac sodium 75 mg PO BID fluoxetine 60 mg PO DAILY gabapentin 600 mg (2 x 300 mg) PO TID 30 days hydrochlorothiazide 25 mg PO DAILY levothyroxine 50 mcg PO DAILY magnesium oxide 400 mg PO DAILY multivitamin (Daily Multi-Vitamin tablet) 1 tab PO DAILY onabotulinumtoxinA (Botox) 200 units IM ONCE 12 weeks ondansetron HCl 8 mg PO Q12H pantoprazole 20 mg PO DAILY pilocarpine HCl 7.5 mg PO BID PRN potassium citrate ER 10 mEq PO TID prazosin 1 mg PO BEDTIME propranolol 10 mg PO BID 90 days pyridoxine (vitamin B6) (Vitamin B-6) 100 mg PO DAILY riboflavin (vitamin B2) 400 mg PO DAILY 30 days rizatriptan 5 - 10 mg (0.5 - 1 x 10 mg) PO Q2H PRN 30 days trazodone 100 mg PO BEDTIME HPI Comments Details: ? 44y/o female comes for treatment of migraines with botox. ??? Most frequent reported adverse reactions following injection of botox for chronic migraine include neck pain (9%), headache(5%), eyelid ptosis(4%), migraine(4%), muscular weakness(4%), musculuskeletal stiffness(4%), bronchitis(3%), injection site pain (3%), musculoskeletal pain(3%), myalgia(3%), facial paresis(2%), HTN(2%) and muscle spasms(2%) were discussed in detail. How many migraine days prior to botox:2030 days How long do the migraines last:2 days Intensity of migraine: 05/02 ER visits related to migraine:1-2/6 mths Effectiveness of botox from last two treatment(s): How many migraine days since receiving treatment:5 Change? in intensity of migraine?decreased Change in frequency of migraine?decreased Change in use of acute medication for migraine?decreased Change in quality of life?improved ER visits related to migraine?none Have at least three months elapsed since last treatment (Last botox date - frequency of injections): ???yes ??? Botulinum toxin typeA 200units Lot no [id number] expiration October 2026 was diluted with 4 cc of normal saline . ??? Muscles injected- ??? Frontalis 4 sites ??? Procerus 1 site ??? Pillowcase Cutter- 2 sites ??? Temporalis- 8 sites ??? Occipitalis- 6 sites ??? Cervical paraspinals- 4 sites ??? Trapezius- 6 sites- 10 units each ??? 5 units each in 31 site ??? Total use- 185units ??? Discarded-15units [facility] Medical History Chronic migraine without aura, intractable, without status migrainosus Arrhythmia CHF (congestive heart failure) PTSD (post-traumatic stress disorder) Kidney stone Renal tubular acidosis HTN (hypertension) GERD (gastroesophageal reflux disease) Anxiety Depression Obstructive sleep apnea Migraine Arthritis Anemia Surgical History Hx of hysterectomy Hx of cholecystectomy Family History Father Migraine Mother Asthma Allergy Thyroid disease Family/Other Migraine Social History Alcohol intake: never Patient Tobacco Use Status: Former Tobacco user e-Cigarette/Vaping Use: Currently Using Physical Exam Vital Signs: Last Vital Signs BP 118/78 10/15/24 07:36 BMI result Body Mass Index 29.4 Const General: cooperative and no acute distress Orientation/consciousness: patient oriented x3 Resp Effort & Inspection: normal respiratory effort and able to speak in complete sentences Neuro Other: Bilateral posterior cervical tightness. Cervical ROM: full Left Spurling: normal Right Spurling: normal. General: patient oriented x3 Cranial nerves: Yes CN's II-XII intact bilaterally Cognition (Neuro): normal cognition Psych Appearance: grossly normal Mental Status: mental status grossly normal Speech and movement: Normal speech and movement present Affect: normal affect Attitude: cooperative Office Procedures Botulinum toxin Injection 88762 - Migraine Procedure code (CPT) selection complete Office Meds onabotulinumtoxinA 200 unit solution for injection Performing Provider: Cleo Santamaria MD Performing Location[place] [facility] [place] [facility] Administered by: Cleo Santamaria MD on 10/15/24 08:03 Dose Route Admin Location Dispensed Lot Number Expiration Date [facility] Laborer Adjustable Steel Joist 185 unit subcut 200 units [id number] ALLERGAN/BOTOX Comments: see hpi Assessment & Plan Assessment & Plan (1) Chronic migraine without aura, intractable, without status migrainosus: Code(s): G43.719 - Chronic migraine without aura, intractable, without status migrainosus Category: Medical Plan Patient tolerated the procedure well she will call with any side effects Orders: Orders AMB Botulinum toxin Injection Today G43.719 - Chronic migraine without aura, intractable, without status migrainosus Medications: New onabotulinumtoxinA 200 units subcut ONCE 1 ea 0RF migraine G43.719 - Chronic migraine without aura, intractable, without status migrainosus Coding Level of Care Code Est Pt Level 1 (17332) Diagnoses Chronic migraine without aura, intractable, without status migrainosus G43.719 CPT Codes Botox Injection - Botox 3: 92522 - Migraine ([id number])
== END 2024-10-15 07:59 | disposition home or self-care (01) ==
LOC: HO.HSMS 07:31
PROVIDERS: PCP Family Medicine; Visit Provider Psychiatry & Neurology Neurology
DX: G43.719 Chronic migraine without aura, intractable, without status migrainosus (principal)
CPT/HCPCS: 64615

== ENCOUNTER → 2024-10-15 07:31 | Outpatient (BNVA) | payer OTHER, SELFPAY | PROVIDERS: PCP Family Medicine; Visit Provider Psychiatry & Neurology Neurology | DX: G43.719 Chronic migraine without aura, intractable, without status migrainosus (principal) | CPT/HCPCS: 64615; 99211; J0585 ==

== ENCOUNTER 2025-01-28 07:38 | Outpatient (AMB) | payer OTHER, SELFPAY ==
--- OUTSIDE RECORDS SUMMARY | 2025-01-22 23:59 | XMS_ITS | Continuity of Care Document ---
Author Organization [facility] Address [address] [facility] [place] [address] [place] [address]- Care Team Providers Care Global Mobility Specialist Name Role Phone Liza VALENTIN, Lucho Friend Primary Care Physician Encounter 01/15/25 - 01/22/25 [facility] [address], [facility] [address] [place] [address]- Attending Physician: Omega Morotn Admitting Physician: Omega Morton Referring Physician: Omega Morton Encounter Type: OutPatient One Time Allergies, Adverse Reactions, Alerts Substance Criticality Severity Reaction Reaction Severity Status ibuprofen vomiting Active doxycycline 1 Active NIFEdipine C/O - a headach e Maternal hypotension syndrome NOS Active Narcan 2 Active Phenergan dystonic rxn Active Levaquin rash Active Percocet 7.5/325 3 A ctive 1HEAD TO TOE RASH 2Patient could not move body and couldnt swallow 3INTOLERANCE - VOMITTING Immunizations Given and Recorded Vaccine Date Status Refusal Reason tetanus-diphtheria toxoids (Td) 02/05/19 Given Medications amLODIPine 5 mg oral tablet 1 tablet, By Mouth, Daily, # 90 tablet, 3 Refills, Maintenance, 04/04/24 6:03:00 AM EDT, [id number], 163, cm, 03/26/24 14:05:00 EDT, Height, 75.5, kg, 09/29/23 18:08:00 EST, Dry Weight Start Date: 04/04/24 Status: Ordered Quantity: 90.0 Unit: tablet Repeat number: 1 Benadryl 25 mg oral capsule 1 capsule, By Mouth, 3 times a day, PRN for allergy symptoms, 0 Refills, Maintenance, 11/11/10 10:17:09 AM EDT, Capsule Start Date: 11/11/10 Status: Ordered Repeat number: 1 busPIRone 15 mg oral tablet 1 tablet = 15 mg, By Mouth, 3 times a day Start Date: 11/08/19 Status: Ordered Repeat number: 1 cyclobenzaprine 10 mg oral tablet 1, tablet, By Mouth, 3 times a day, # 90 tablet, Refills 3, Maintenance, 12/19/24 1:58:00 PM EDT, Route to Pharmacy Electronically, [facility] #[id number], 163, cm, 07/29/24 8:07:00 EST, Height, 75.5, kg, 09/29/23 18:08:00 EST, Dry Weight Start Date: 12/19/24 Status: Ordered Quantity: 90.0 Unit: tablet Repeat number: 1 desvenlafaxine 50 mg oral tablet, extended release 1 tablet = 50 mg, By Mouth, Daily at bedtime Start Date: 11/08/19 Status: Ordered Repeat number: 1 diclofenac sodium 75 mg oral delayed release tablet 1 tablet = 75 mg, By Mouth, 2 times a day, PRN as needed, # 60 tablet, 0 Refills, Maintenance, 08/08/24 3:59:00 PM EST, EC Tablet, [facility] #[id number], Partial fill upon patient request if theprescription is for a schedule II opioid drug., 163, cm, 07/29/24 8:07:00 EST, Height, 75.5, kg, 09/29/23 18:08:00 EST, Dry Weight Start Date: 08/08/24 Status: Ordered Quantity: 60.0 Unit: tablet Repeat number: 1 ferrous sulfate 325 mg oral enteric coated tablet 325 mg, 1, tablet, By Mouth, Daily, Maintenance, 09/29/23 8:16:00 AM EST, Partial fill upon patient request if the prescription is for a schedule II opioid drug. Start Date: 09/29/23 Status: Ordered Repeat number: 1 FLUoxetine 60 mg oral tablet 1 tablet = 60 mg, By Mouth, Daily in AM, # 30 tablet, 0 Refills, Maintenance, 03/26/24 2:11:00 PM EDT, Tablet, Partial fill upon patient request if the prescription is for a schedule II opioid drug. Start Date: 03/26/24 Status: Ordered Quantity: 30.0 Unit: tablet Repeat number: 1 gabapentin 600 mg oral tablet See Instructions, 1 tablet By Mouth 3 times a day for a total of 1,200mg, 0 Refills, Maintenance, 03/26/24 2:12:00 PM EDT, Partial fill upon patient request if the prescription is for a schedule II opioid drug. Start Date: 03/26/24 Status: Ordered Repeat number: 1 High Potency Vitamin D3 50 mcg (2000 intl units) oral capsule 1 capsule = 50 mcg, By Mouth, Daily, 0 Refills, Maintenance, 03/26/24 2:13:00 PM EDT, Partial fill upon patient request if the prescription is for a schedule II opioid drug. Start Date: 03/26/24 Status: Ordered Repeat number: 1 hydrochlorothiazide 25 mg oral tablet 25 mg, 1, tablet, By Mouth, Daily in AM, # 30 tablet, Refills 5, Tot. Refills 5, Maintenance, 01/25/24 4:55:00 PM EDT, Route to Pharmacy Electronically, [facility] #[id number], Partial fill upon patient request if the prescription is for a schedule II opioid drug., 163, cm, 12/06/23 11:22:00 EDT, Height, 75.5, kg, 09/29/23 18:08:00 EST, Dry Weight Start Date: 01/25/24 Status: Ordered Quantity: 30.0 Unit: tablet Repeat number: 6 levothyroxine 0.05 mg oral tablet 1 tablet, By Mouth, Daily, # 90 tablet, 3 Refills, Maintenance, 09/27/24 2:23:00 PM EST, [facility] #[id number], 163, cm, 07/29/24 8:07:00 EST, Height, 75.5, kg, 09/29/23 18:08:00 EST, Dry Weight Start Date: 09/27/24 Status: Ordered Quantity: 90.0 Unit: tablet Repeat number: 4 Mag-Ox 400 400 mg oral tablet 1 tablet = 400 mg, By Mouth, Daily, Maintenance, 09/29/23 8:18:00 AM EST, Tablet, Partial fill upon patient request if the prescription is for a schedule II opioid drug. Start Date: 09/29/23 Status: Ordered Repeat number: 1 Multivitamin 1 tablet, By Mouth, Daily, 0 Refills, Maintenance, 03/08/19 1:03:15 PM EDT Start Date: 03/08/19 Status: Ordered Repeat number: 1 ondansetron 4 mg oral tablet, disintegrating See Instructions, DISSOLVE 1 TABLET ON THE TONGUE EVERY 8 HOURS NEEDED FOR NAUSEA OR VOMITING, #30 tablet, 5 Refills, Maintenance, 10/17/23 3:17:00 AM EDT, [facility] #[id number], 163, cm, 10/03/23 15:59:00 EDT, Height, 75.5, kg, 09/29/23 18:08:00 EST, Dry Weight Start Date: 10/17/23 Status: Ordered Quantity: 30.0 Unit: tablet Repeat number: 6 pantoprazole 20 mg oral delayed release tablet 1 tablet, By Mouth, 2 times a day, # 180 tablet, 3 Refills, Maintenance, 12/06/23 11:44:00 AM EDT, 163, cm, 12/06/23 11:22:00 EDT, Height, 75.5, kg, 09/29/23 18:08:00 EST, Dry Weight Start Date: 12/06/23 Status: Ordered Quantity: 180.0 Unit: tablet Repeat number: 4 pilocarpine 7.5 mg oral tablet 1 tablet, By Mouth, 2 times a day, # 60 tablet, 11 Refills, Maintenance, 03/16/24 6:29:00 AM EDT, [facility] #[id number], 163, cm, 12/06/23 11:22:00 EDT, Height, 75.5, kg, 09/29/23 18:08:00 EST, Dry Weight Start Date: 03/16/24 Status: Ordered Quantity: 60.0 Unit: tablet Repeat number: 1 potassium citrate 10 mEq oral tablet 3 tablet = 30 mEq, By Mouth, 3 times a day Start Date: 03/11/19 Status: Ordered Repeat number: 1 prazosin 1 mg oral capsule 1 mg, 1, capsule, By Mouth, Daily at bedtime, Refills 0, Maintenance, 07/06/23 12:22:00 PM EST, Partial fill upon patient request if the prescription is for a schedule II opioid drug. Start Date: 07/06/23 Status: Ordered Repeat number: 1 propranolol 10 mg oral tablet 10 mg, 1, tablet, By Mouth, 2 times a day Start Date: 07/06/23 Status: Ordered Repeat number: 1 riboflavin 400 mg oral tablet 1 tablet = 400 mg, By Mouth, Daily, Maintenance, 09/29/23 8:21:00 AM EST, Tablet, Partial fill upon patient request if the prescription is for a schedule II opioid drug. Start Date: 09/29/23 Status: Ordered Repeat number: 1 rizatriptan 10 mg oral tablet 1 tablet = 10 mg, By Mouth, Daily, 0 Refills, Maintenance, 03/26/24 2:12:00 PM EDT, Partial fill uponpatient request if the prescription is for a schedule II opioid drug. Start Date: 03/26/24 Status: Ordered Repeat number: 1 traZODone 100 mg oral tablet 100 mg, 1, tablet, By Mouth, Daily at bedtime Start Date: 09/29/23 Status: Ordered Repeat number: 1 Tylenol 325 mg oral tablet 650 mg, 2, tablet, By Mouth, Every 4 hours, PRN, # 50 tablet, Refills 0, Tot. Refills 0, Maintenance, Pain , Moderate, 09/18/21 6:37:00 AM EST, Route to Pharmacy Electronically, [facility] #[id number], Partial fill upon patient request if the prescription is for a schedule II opioid drug., 160,cm, 09/18/21 3:38:00 EST, Height, 74.2, kg, 09/17/21 6:48:00 EST, Dry Weight Start Date: 09/18/21 Status: Ordered Quantity: 50.0 Unit: tablet Repeat number: 1 Vitamin B6 100 mg oral tablet 1 tablet = 100 mg, By Mouth, Daily, 0 Refills, Maintenance, 12/12/22 4:58:00 PM EDT, Tablet, Partialfill upon patient request if the prescription is for a schedule II opioid drug. Start Date: 12/12/22 Status: Ordered Repeat number: 1 Problem List Condition Confirmation Course Effective Dates Status H ealth Status Informant Anxiety Confirmed Active Dystonia Confirmed Active Essential hypertension Confirmed Active Fibromyalgia Confirmed Active Hx of iron deficiency anemia Confirmed Active Hx of fracture of rib Confirmed Active History of renal stone Confirmed Active IBS (irritable bowel syndrome) Confirmed Active Nephrolithiasis Confirmed Active Depression, major, recurrent, moderate Confirmed Active Renal tubular acidosis Confirmed Active Rheumatoid arthritis Confirmed Active Results Radiology Reports * Exam Date Time Procedure Performing Provider Status 01/14/25 8:[address] Abd/Pelvis W/O Contrast Auth (Verified) Notes: (CT Abd/Pelvis W/O Contrast) Reason For Exam: Renal Stone RESULT: CT Abd/Pelvis W/O Contrast CT Abd/Pelvis W/O Contrast Reason: Renal Stone TECHNIQUE: Spiral CT through the abdomen and pelvis without IV contrast formatted in 3 planes. Thisstudy was performed without oral contrast. Weight- based protocol using automatic tube modulation was used to optimize exposure parameters. [facility], .C, [address] [place] [address]. COMPARISON: CT, 08/29/2024. FINDINGS: Senior Specialist View Findings, Lines and Tubes: None. Visualized Chest: Lung bases are clear. No pleural effusion. The heart is normal in size. No pericardial effusion. Diaphragm: Normal. Liver: Normal. Gallbladder: Absent consistent with prior cholecystectomy. Bile ducts: No biliary ductal dilation. Spleen: Normal. Pancreas: Normal. Adrenal glands: Normal. Kidneys and ureters: There is a 4 mm nonobstructing calculus in the right lower pole. No right-sided hydronephrosis or suspicious renal mass. There is a 6 mm calculus in the left renal pelvis, unchanged, without hydronephrosis. There is a 2 mm left upper pole calculus, which was previously noted in the mid kidney, as well as stable punctate left lower pole calculus. Bladder: Bladder is collapsed, limiting assessment. Reproductive organs: Status post hysterectomy. Ovaries appear normal. Stomach, small bowel, and large bowel: Stomach contains debris. The small bowel is normal in caliber. Colon is normal. Appendix: Normal. Peritoneum and retroperitoneum: No ascites or pneumoperitoneum. No omental or mesenteric lesions. Lymph nodes: No enlarged lymph nodes. Blood vessels: Mild vascular calcifications but no aneurysm. Abdominal and pelvic wall: Unremarkable. Bones: Mild degenerative changes are seen in the lumbar spine with disc space narrowing most pronounced at L3-4 where endplate Schmorl's nodes are noted. IMPRESSION: 1. 6 mm calculus in the left renal pelvis is again seen without hydronephrosis. 2. 2 mm left upper pole renal calculus was previously noted in the mid kidney. 3. Other renal calculi are stable as above. WSN: [id number] Ordering Physician: Omega Dubose Dictated By: Luzma Holguin MD Dictated Date/Time: 01/15/25 9:57 am Reviewed By: Luzma Holguin MD Signed By: Luzma Holguin MD Signed Date/Time: 01/15/25 9:57 am Transcribed By: CHELA Transcribed Date/Time: 01/15/25 9:44 am Social History Social History Type Response Smoking Status Former smoker, quit more than 30 days ago; Other: quit, 07/2018; vapes 1joule every 1-4days; entered on: 02/05/19 Sex Sex Representation Female (finding) Patient Care team information Care Team Personnel Name: Martina Olivo Position: [facility] Outreach Member Role: Lifetime Consulting Physician Name: Marine Parsons RN Position: [facility] SN RN Member Role: Primary Care Nurse Name: Lucho De Jeuss MD Position: [facility] Physician - Primary Care Member Role: PCP Address: [address] [place] [address] Telecom: Name: Ana Rios RN Position: [facility] RN Member Role: Primary Care Nurse Name: Susi Last RN Position: [facility] SN RN Member Role: Primary Care Nurse Care Team Related Persons Name: CHARLIE VO Name: WINNIE ROSE Name: WINNIE ROSE Insurance Providers Guarantor name: [facility] Information #: 1 Payer: [employer] [place] Payer Identifier: NA Member Number: [id number] Group Number: [id number] Subscriber Identifier: [id number] Relationship to Subscriber: self Coverage Type: Medicaid (Managed Care) Coverage Verification Date: NA Telecom: NA Address:
--- NOTE | 2025-01-28 07:40 | MHC.OFFVIS ---
Vital Signs 01/28/25 07:41 Height 5 ft 3 in BP 104/84 Blood Pressure Location Rt brachial Position Sitting Intake Visit Reasons: BOTOX Intake Note: Patiient presents for botox injection practice supplied Allergies acetaminophen (From Percocet) Allergy (Severe, Verified 01/28/25 07:44) Vomiting doxycycline Allergy (Severe, Verified 01/28/25 07:44) rash ibuprofen Allergy (Severe, Verified 01/28/25 07:44) Vomiting nifedipine Allergy (Severe, Verified 01/28/25 07:44) Vomiting oxycodone (From Percocet) Allergy (Severe, Verified 01/28/25 07:44) Vomiting promethazine (From Phenergan) Allergy (Severe, Verified 01/28/25 07:44) dystonic reaction levaquin Allergy (Uncoded 01/28/25 07:44) Unknown Medication List - Last Reconciled 01/28/25 by Cleo Santamaria MD amlodipine 5 mg PO DAILY buspirone 15 mg PO TID cholecalciferol (vitamin D3) 50 mcg PO DAILY cyanocobalamin (vitamin B-12) (Vitamin B-12) 500 mcg PO DAILY cyclobenzaprine 10 mg PO TID PRN desvenlafaxine succinate ER (Pristiq) 50 mg PO DAILY diclofenac sodium 75 mg PO BID fluoxetine 60 mg PO DAILY gabapentin 600 mg (2 x 300 mg) PO TID 30 days hydrochlorothiazide 25 mg PO DAILY levothyroxine 50 mcg PO DAILY magnesium oxide 400 mg PO DAILY multivitamin (Daily Multi-Vitamin tablet) 1 tab PO DAILY onabotulinumtoxinA (Botox) 200 units IM ONCE 12 weeks ondansetron HCl 8 mg PO Q12H pantoprazole 20 mg PO DAILY pilocarpine HCl 7.5 mg PO BID PRN potassium citrate ER 10 mEq PO TID prazosin 1 mg PO BEDTIME propranolol 10 mg PO BID 90 days pyridoxine (vitamin B6) (Vitamin B-6) 100 mg PO DAILY riboflavin (vitamin B2) 400 mg PO DAILY 30 days rizatriptan 5 - 10 mg (0.5 - 1 x 10 mg) PO Q2H PRN 30 days trazodone 100 mg PO BEDTIME HPI Comments Details: ? 44y/o female comes for treatment of migraines with botox. ??? Most frequent reported adverse reactions following injection of botox for chronic migraine include neck pain (9%), headache(5%), eyelid ptosis(4%), migraine(4%), muscular weakness(4%), musculuskeletal stiffness(4%), bronchitis(3%), injection site pain (3%), musculoskeletal pain(3%), myalgia(3%), facial paresis(2%), HTN(2%) and muscle spasms(2%) were discussed in detail. How many migraine days prior to botox:20/30 days How long do the migraines last:2 days Intensity of migraine: 05/02 ER visits related to migraine:1-2/6 mths Effectiveness of botox from last two treatment(s): How many migraine days since receiving treatment:5 Change? in intensity of migraine?decreased Change in frequency of migraine?decreased Change in use of acute medication for migraine?decreased Change in quality of life?improved ER visits related to migraine?none Have at least three months elapsed since last treatment (Last botox date - frequency of injections): ???yes ??? Botulinum toxin typeA 200units Lot no [id number] expiration April 2027 was diluted with 4 cc of normal saline . ??? Muscles injected- ??? Frontalis 4 sites ??? Procerus 1 site ??? Snack Foods Mixer Operator- 2 sites ??? Temporalis- 8 sites ??? Occipitalis- 6 sites ??? Cervical paraspinals- 4 sites ??? Trapezius- 6 sites- 10 units each ??? 5 units each in 31 site ??? Total use- 185units ??? Discarded-15units [facility] Medical History Chronic migraine without aura, intractable, without status migrainosus Arrhythmia CHF (congestive heart failure) PTSD (post-traumatic stress disorder) Kidney stone Renal tubular acidosis HTN (hypertension) GERD (gastroesophageal reflux disease) Anxiety Depression Obstructive sleep apnea Migraine Arthritis Anemia Surgical History Hx of hysterectomy Hx of cholecystectomy Family History Father Migraine Mother Asthma Allergy Thyroid disease Family/Other Migraine Social History Alcohol intake: never Patient Tobacco Use Status: Former Tobacco user e-Cigarette/Vaping Use: Currently Using Physical Exam Vital Signs: Last Vital Signs BP 104/84 01/28/25 07:41 Const General: cooperative and no acute distress Orientation/consciousness: patient oriented x3 Resp Effort & Inspection: normal respiratory effort and able to speak in complete sentences Neuro Other: Bilateral posterior cervical tightness. Cervical ROM: full Left Spurling: normal Right Spurling: normal. General: patient oriented x3 Cranial nerves: Yes CN's II-XII intact bilaterally Cognition (Neuro): normal cognition Psych Appearance: grossly normal Mental Status: mental status grossly normal Speech and movement: Normal speech and movement present Affect: normal affect Attitude: cooperative Office Procedures Botulinum toxin Injection 56131 - Migraine Procedure code (CPT) selection complete Office Meds onabotulinumtoxinA 200 unit solution for injection Performing Provider: Cleo Santamaria MD Performing Location: [facility] Administered by: Cleo Santamaria MD on 01/28/25 08:29 Dose Route Admin Location Dispensed Lot Number Expiration Date [facility] Milieu Technician 185 unit subcut 200 units [id number] ALLERGAN/BOTOX Total Dispensed Waste 200 units 7.5 % Comments: see hpi Assessment & Plan Assessment & Plan (1) Chronic migraine without aura, intractable, without status migrainosus: Code(s): G43.719 - Chronic migraine without aura, intractable, without status migrainosus Category: Medical Plan Patient tolerated the procedure well she will call with any side effects Orders: Orders AMB Botulinum toxin Injection Today G43.719 - Chronic migraine without aura, intractable, without status migrainosus Coding Level of Care Code Est Pt Level 1 (60521) Diagnoses Chronic migraine without aura, intractable, without status migrainosus G43.719 CPT Codes Botox Injection - Botox 3: 54895 - Migraine ([id number])
[2025-01-28 07:41] VITALS: BP 104/84
--- OUTSIDE RECORDS SUMMARY | 2025-01-28 07:41 | XMS_ITS | Encounter Summary ---
Author Organization [facility] Address [address] [place] [address] Phone Care Team Providers Care Electronics Assembler And Tester Name Role Phone Lucho De Jesus MD Primary Care Provider [phone] Encounter Details Date Type Department Care Team (Late Contact Info) Description 01/11/2021 Orders Only [facility] [address] [facility] [address] [place] [address] Provider, MD Vicki Social History Tobacco Use Types Packs/Day Years Used Date Smoking Tobacco: Every Day Cigarettes Alcohol Use Standard Drinks/Week Comments Yes 0 (1 standard drink = 0.6 oz pure alcohol) Alcoholic Drinks/day: Occasional social drink Comments Unknown Sex and Gender Information Value Date Recorded Sex Assigned at Not on file Legal Sex Female 5:16 PM EST Gender Identity Not on file Sexual Orientation Not on file COVID-19 Exposure Response Date Recorded In the last month, have you been in contact with someone who was confirmed or suspected to have Coronavirus / COVID-19? No / Unsure 01/11/2021 2:37 PM EDT documented as of this encounter Plan of Treatment Upcoming Encounters Date Type Department Care Team (Late Contact Info) Description 06/16/2025 8:30 AM EST Office Visit [facility] [address] [facility] [address] [place] [address] Margaret Malik ARNP [address] [facility] [address] [place] [address] documented as of this encounter Procedures Procedure Name Priority Date/Time Associated Diagnosis Comments EXT RESULT ENTRY Routine 09/23/2020 documented in this encounter Results * EXT RESULT ENTRY (09/23/2020) us Historical Provider LAB BLOOD ORDERABLES Xiao l Result documented in this encounter Visit Diagnoses Not on filedocumented in this encounter Care Teams Electronics Assembler And Tester Relationship Specialty Start Date End Date Lucho De Jesus MD [address] [place] [address] PCP - General Family Medicine 05/30/22 documented as of this encounter
--- OUTSIDE RECORDS SUMMARY | 2025-01-28 07:41 | XMS_ITS | Encounter Summary ---
Author Organization [facility] Address [address] [place] [address] Care Team Providers Care Gamer Name Role Phone Physician, Pcp Unknown Primary Care Provider Leonor vailable Encounter Details Date Type Department Care Team (Late st Contact Info) Description 09/25/2024 Lab Requisition [facility] [address] [facility] [employer] [place] [address] Jaz Vieyra PA [address] [employer] [address] [place] [address] Gross hematuria Social History Tobacco Use Types Packs/Day Years Used Date Smoking Tobacco: Never Assessed Comments Unknown Sex and Gender Information Value Date Recorded Sex Assigned at Not on file Legal Sex Female 12:11 PM EST Gender Identity Not on file Sexual Orientation Not on file documented as of this encounter Plan of Treatment Upcoming Encounters Date Type Department Care Team (Latest Contact Info) Description 02/07/2025 8:15 AM EDT Hospital Encounter [address] [phone] Jimbo Roman MD [address] [address] 02/07/2025 8:15 AM EDT - 02/07/2025 9:00 AM EDT Surgery [address] [phone] Jimbo Roman MD [address] [address] ESWL LEFT [51263 (CPT )] Scheduled Procedures Name Priority Associated Diagnoses Date/Ti me ESWL Calculus of kidney 02/07/2025 8:15 AM EDT documented as of this encounter Procedures Procedure Name Priority Date/Time Associated Diagnosis Comments AP OUTSIDE CONSULT Routine 09/19/2024 12 :00 AM EST Gross hematuria documented in this encounter Results * Anatomic pathology outside consult (09/19/2024 12:00 AM EST) Final Diagnosis A. Urine, Voided, ([id number]): Negative for high grade urothelial carcinoma. Results of [employer] fluorescence in situ hybridization (FISH) testing: CEP3: Normal CEP7: Normal CEP17: Normal LSI 9p21: Normal Interpretation: Normal profile Controls stained appropriately. Note: The results are intended as a screening device and should be interpreted in association with other clinical and pathological findings. 10/03/2024 5:20 PM EDT [facility] Clinical Information Gross hematuria R31.0 Urine Cytology/FISH (now) 10/03/2024 5:20 PM EDT [facility] Gross Description A. Urine, Voided, ([id number]): Received one ThinPrep slide for cytology and one ThinPrep slide for UroVysion FISH 10/03/2024 5:20 PM EDT [facility] Disclaimer Unless otherwise specified, all tissue is 10% NB formalin fixed and paraffin embedded. Technical pathology services provided by [facility] at [address], [place] [address] (CLIA #[id number]/Tamara Walsh MD, Nylon Operator) 10/03/2024 5:20 PM EDT [facility] Tissue Urine specimen from urethra / Unknown 09/19/2024 09/25/2024 1:50 PM EST us Jaz [facility]EP[facility] LAB PATHOLOGY ORDERABLES Final Result [facility] [address] [place] [address], documented in this encounter Visit Diagnoses Diagnosis Gross hematuria Calculus of kidney documented in this encounter Care Teams Gamer Relationship Specialty Start Date End Date Physician, Pcp Unknown PCP - General 09/25/24 documented as of this encounter
== END 2025-01-28 08:03 | disposition home or self-care (01) ==
LOC: HO.HSMS 07:39
PROVIDERS: PCP Family Medicine; Visit Provider Psychiatry & Neurology Neurology
DX: G43.719 Chronic migraine without aura, intractable, without status migrainosus (principal)
CPT/HCPCS: 64615

== ENCOUNTER → 2025-01-28 07:38 | Outpatient (BNVA) | payer OTHER, SELFPAY | PROVIDERS: PCP Family Medicine; Visit Provider Psychiatry & Neurology Neurology | DX: G43.719 Chronic migraine without aura, intractable, without status migrainosus (principal); I49.9 Cardiac arrhythmia, unspecified; I11.0 Hypertensive heart disease with heart failure; I50.9 Heart failure, unspecified; K21.9 Gastro-esophageal reflux disease without esophagitis; F41.9 Anxiety disorder, unspecified; F32.A Depression, unspecified; G47.33 Obstructive sleep apnea (adult) (pediatric); D64.9 Anemia, unspecified; F17.290 Nicotine dependence, other tobacco product, uncomplicated | CPT/HCPCS: 64615; 99211; J0585 ==

== ENCOUNTER 2025-05-06 07:36 | Outpatient (AMB) | payer OTHER, SELFPAY ==
--- NOTE | 2025-05-06 07:38 | A.OFFVIS_ITS ---
Vital Signs 05/06/25 07:39 Height 5 ft 3 in Weight 166 lb 4 oz BMI 29.4 BP 112/76 Blood Pressure Location Rt brachial Position Sitting Pulse 91 Pulse Source Pulse Oximeter Pulse Oximetry (%) 98 Oxygen Delivery Method Room Air Intake Visit Reasons: BOTOX Intake Note: Botox Police Communications Operator Required: No Accompanied by: Self / Same As Patient Allergies acetaminophen (From Percocet) Allergy (Severe, Verified 05/06/25 07:38) Vomiting doxycycline Allergy (Severe, Verified 05/06/25 07:38) rash ibuprofen Allergy (Severe, Verified 05/06/25 07:38) Vomiting nifedipine Allergy (Severe, Verified 05/06/25 07:38) Vomiting oxycodone (From Percocet) Allergy (Severe, Verified 05/06/25 07:38) Vomiting promethazine (From Phenergan) Allergy (Severe, Verified 05/06/25 07:38) dystonic reaction levaquin Allergy (Uncoded 01/28/25 07:44) Unknown Medication List - Last Reconciled 05/06/25 by Cleo Santamaria MD amlodipine 5 mg PO DAILY buspirone 15 mg PO TID cholecalciferol (vitamin D3) 50 mcg PO DAILY cyanocobalamin (vitamin B-12) (Vitamin B-12) 500 mcg PO DAILY cyclobenzaprine 10 mg PO TID PRN desvenlafaxine succinate ER (Pristiq) 50 mg PO DAILY diclofenac sodium 75 mg PO BID fluoxetine 60 mg PO DAILY gabapentin 600 mg (2 x 300 mg) PO TID 30 days hydrochlorothiazide 25 mg PO DAILY levothyroxine 50 mcg PO DAILY magnesium oxide 400 mg PO DAILY multivitamin (Daily Multi-Vitamin tablet) 1 tab PO DAILY onabotulinumtoxinA (Botox) 200 units IM ONCE 12 weeks ondansetron HCl 8 mg PO Q12H pantoprazole 20 mg PO DAILY pilocarpine HCl 7.5 mg PO BID PRN potassium citrate ER 10 mEq PO TID prazosin 1 mg PO BEDTIME propranolol 10 mg PO BID 90 days pyridoxine (vitamin B6) (Vitamin B-6) 100 mg PO DAILY riboflavin (vitamin B2) 400 mg PO DAILY 30 days rizatriptan 5 - 10 mg (0.5 - 1 x 10 mg) PO Q2H PRN 30 days trazodone 100 mg PO BEDTIME HPI Comments Details: ? 45y/o female comes for treatment of migraines with botox. ??? Most frequent reported adverse reactions following injection of botox for chronic migraine include neck pain (9%), headache(5%), eyelid ptosis(4%), migraine(4%), muscular weakness(4%), musculuskeletal stiffness(4%), bronchitis(3%), injection site pain (3%), musculoskeletal pain(3%), myalgia(3%), facial paresis(2%), HTN(2%) and muscle spasms(2%) were discussed in detail. How many migraine days prior to botox:20/30 days How long do the migraines last:2 days Intensity of migraine: 05/02 ER visits related to migraine:1-2/6 mths Effectiveness of botox from last two treatment(s): How many migraine days since receiving treatment:5 Change? in intensity of migraine?decreased Change in frequency of migraine?decreased Change in use of acute medication for migraine?decreased Change in quality of life?improved ER visits related to migraine?none Have at least three months elapsed since last treatment (Last botox date - frequency of injections): ???yes ??? Botulinum toxin typeA 200units Lot no [id number] expiration May 2027 was diluted with 4 cc of normal saline . ??? Muscles injected- ??? Frontalis 4 sites ??? Procerus 1 site ??? Client Account Manager- 2 sites ??? Temporalis- 8 sites ??? Occipitalis- 6 sites ??? Cervical paraspinals- 4 sites ??? Trapezius- 6 sites- 10 units each ??? 5 units each in 31 site ??? Total use- 185units ??? Discarded-15units [facility] Medical History Chronic migraine without aura, intractable, without status migrainosus Arrhythmia CHF (congestive heart failure) PTSD (post-traumatic stress disorder) Kidney stone Renal tubular acidosis HTN (hypertension) GERD (gastroesophageal reflux disease) Anxiety Depression Obstructive sleep apnea Migraine Arthritis Anemia Surgical History Hx of hysterectomy Hx of cholecystectomy Family History Father Migraine Mother Asthma Allergy Thyroid disease Family/Other Migraine Social History Alcohol intake: never Patient Tobacco Use Status: Former Tobacco user e-Cigarette/Vaping Use: Currently Using Physical Exam Vital Signs: Last Vital Signs Pulse 91 05/06/25 07:39 BP 112/76 05/06/25 07:39 Pulse Ox 98 05/06/25 07:39 Oxygen Delivery Method Room Air 05/06/25 07:39 BMI result Body Mass Index 29.4 Const General: cooperative and no acute distress Orientation/consciousness: patient oriented x3 Resp Effort & Inspection: normal respiratory effort and able to speak in complete sentences Neuro Other: Bilateral posterior cervical tightness. Cervical ROM: full Left Spurling: normal Right Spurling: normal. General: patient oriented x3 Cranial nerves: Yes CN's II-XII intact bilaterally Cognition (Neuro): normal cognition Psych Appearance: grossly normal Mental Status: mental status grossly normal Speech and movement: Normal speech and movement present Affect: normal affect Attitude: cooperative Office Procedures Botulinum toxin Injection 68493 - Migraine Procedure code (CPT) selection complete Office Meds onabotulinumtoxinA 200 unit solution for injection Performing Provider: Cleo Santamaria MD Performing Location: [facility] [place] [facility] Administered by: Cleo Santamaria MD on 05/06/25 08:03 Dose Route Admin Location Dispensed Lot Number Expiration Date [facility] Quality Assurance Group Leader 185 unit subcut 200 units [id number] ALLERGAN /BOTOX Total Dispensed Waste 200 units 7.5 % Comments: see hpi Assessment & Plan Assessment & Plan (1) Chronic migraine without aura, intractable, without status migrainosus: Code(s): G43.719 - Chronic migraine without aura, intractable, without status migrainosus Category: Medical Plan Patient tolerated the procedure well she will call with any side effects Orders: Orders AMB Botulinum toxin Injection Today G43.719 - Chronic migraine without aura, intractable, without status migrainosus Coding Level of Care Code Est Pt Level 1 (95514) Diagnoses Chronic migraine without aura, intractable, without status migrainosus G43.719 CPT Codes Botox Injection - Botox 3: 52890 - Migraine ([id number])
[2025-05-06 07:39] VITALS: BP 112/76; PULSE 91; O2SAT 98; BMI 29.4
--- OUTSIDE RECORDS SUMMARY | 2025-05-06 07:39 | XMS_ITS | Clinical Summary ---
Author Organization [facility] Address [address] [place] [id number] Phone Care Team Providers Care Project Associate Name Role Phone Briseyda Solomon MD Unavailable [phone] Олег Peres MD Unavailable [phone] Dav Pulido MD Unavailable [email or web address] Unknown, Unknown Primary Care Provider Sara alvarenga Allergies Active Allergy Reactions Criticality Noted Date Comments Doxycycline Calcium Rash Low 08/01/2018 Ibuprofen GI Upset 08/01/2018 Levofloxacin Rash Low 08/01/2018 Nifedipine Nausea and/or Vomiting 08/01/2018 Oxycodone-Acetaminophen Nausea and/or Vomiting 08/01/2018 Promethazine Other (See Comments) 08/01/2018 Twitching and shaking Medications nortriptyline (PAMELOR) 25 MG capsule Take 1 capsule (25 mg total) by mouth daily. 90 capsule 1 10/24/2018 Active potassium citrate (UROCIT-K) 10 mEq SR tablet Take 10 mEq by mouth 3 (three) times a day with meals. Active hydroCHLOROthia zide (HYDRODIURIL) 12.5 MG tablet Take 12.5 mg by mouth 2 (two) times a day. Active pyridoxine, vitamin B6, (VITAMIN B-6) 100 MG tablet Take 100 mg by mouth daily. Active magnesium oxide 400 mg Cap Take by mouth 2 (two) times a day. Active omeprazole (PRILOSEC) 20 mg TbEC Take 20 mg by mouth 2 (two) times a day. Active diclofenac sodium (VOLTAREN) 75 MG EC tablet Take 75 mg by mouth 2 (two) times a day. Active onabotulinumtox Vance (BOTOX INJ) Inject as directed every 3 (three) months. Active aspirin-acetami nophen-caffeine (EXCEDRIN MIGRAINE) 250-250-65 mg per tablet Take 1 tablet by mouth every 6 (six) hours as needed for pain (specific location in comments). Active dilTIAZem (CARDIZEM) 120 MG immediate release tablet Take 120 mg by mouth 2 (two) times a day. Active metoprolol succinate (TOPROL-XL) 100 MG 24 hr tablet Take 1 tablet (100 mg total) by mouth daily. 90 tablet 1 11/10/2018 Active busPIRone (BUSPAR) 15 MG tablet Take 1 tablet (15 mg total) by mouth 2 (two) times a day. 120 tablet 5 12/31/2018 Active ondansetron (ZOFRAN) 4 MG tablet Take 1 tablet (4 mg total) by mouth every 8 (eight) hours as needed for nausea. 30 tablet 5 01/07/2019 Active carisoprodol (SOMA) 350 MG tablet TAKE 1 TABLET(350 MG) BY MOUTH EVERY 6 HOURS NEEDED 336 tablet 02/04/2019 Active traZODone (DESYREL) 50 MG tabletIndicatio ns:Chronic major depressive disorder TAKE 1 TABLET BY MOUTH NIGHTLY AT BEDTIME. 30 tablet 5 04/11/2019 Active FLUoxetine (PROZAC) 40 MG capsule Take 1 capsule (40 mg total) by mouth daily. 30 capsule 08/19/2019 Active pilocarpine (SALAGEN) 7.5 MG tablet Take 7.5 mg by mouth 2 (two) times a day as needed. 12/12/2022 Active Active Problems Problem Noted Date Diagnosed Date Chronic tension headache 10/30/2018 Assessment & Plan (10/31/2018 11:50 AM EDT): Worse, partially likely due to worsening depression. I referred her for psychotherapy. I also recommended that she see psychiatry but at this point she like to defer that. Possibly things will be better if we get her sleep better with trazodone. Fibromyalgia 10/30/2018 Assessment & Plan (10/31/2018 11:50 AM EDT): Well-controlled, continue current medication. Irritable bowel syndrome wit h both constipation and diarrhea 10/30/2018 Assessment & Plan (10/31/2018 11:51 AM EDT): Well-controlled, continue current medications. Renal tubular acidosis 10/30/2018 Assessment & Plan (10/31/2018 11:50 AM EDT): Doing well with current medication. Follow-up as scheduled with nephrology. Chronic major depressive disorder 10/30/2018 Assessment & Plan (10/31/2018 11:51 AM EDT): Still not well controlled. Suggested that she see psychiatry history and consultation the patient is deferred. She will start seeing Shakira for some psychotherapy. Hopefully she will improve with the addition of trazodone. Renal stones 10/30/2018 Resolved Problems Problem Noted Date Diagnosed Date Resolved Date Tobacco use disorder 10/30/2018 019 Family History Medical History Relation Comments Hypertension Father Arthritis Mother Asthma Mother Relation Status Comments Father Alive Maternal Grandfather Maternal Grandmother Mother Alive Paternal Grandfather Paternal Grandmother Social History Tobacco Use Types Packs/Day Years Used Date Smoking Tobacco: Former Cigarettes Q uit: 09/30/2018 Smokeless Tobacco: Current Comments:current e-cig smoke r Alcohol Use Standard Drinks/Week Comments Yes 0 (1 standard drink = 0.6 oz pur e alcohol) occasionally Education Answer Date Recorded Are you interested in more education? Not on sherry e 11/18/2022 Are you concerned about learning? Not on file 11/18/2022 No 11/18/2022 No 11/18/2022 Digital Access Answer Date Recorded No 12/20/2022 No 12/20/2022 Reliable internet access at home? Not on file 12/20/2022 Device with a working camera? Not on file Comments Unknown Sex and Gender Information Value Date Recorded Sex Assigned at Not on file Legal Sex Female 2:32 PM EST Gender Identity Not on file Sexual Orientation Not on file Last Filed Vital Signs Vital Sign Reading Time Taken Comments Blood Pressure 130/80 10/31/2018 11:03 AM EDT Pulse 83 10/31/2018 11:03 AM EDT Temperature 36.6 C (97.9 F) 10/31/2018 11:03 AM EDT Respiratory Rate - - Oxygen Saturation 98% 10/31/2018 11: 03 AM EDT Inhaled Oxygen Concentration - - Weight 64.2 kg (141 lb 8 oz) 10/31/2018 11:03 AM EDT with shoes on Height - - Body Mass Index - - Plan of Treatment Health Maintenance Due Date Last Done Comments Adult Td,Tdap Booster 1980 LIPID PANEL 1980 POTASSIUM LEVEL 1980 DEPRESSION SCREENING 1992 SMOKING Hx and SMOKELESS TOB ACCO SCREENING 1993 HEPATITIS C SCREENING 1998 HIV ONE-TIME SCREENING (18-6 5 YEARS) 1998 PAP SMEAR 2001 MAMMOGRAM 2020 INFLUENZA VACCINE (#1) 2025 COLOGUARD 2025 COLONOSCOPY 2025 COLORECTAL CANCER SCREENING 2025 FIT TEST 2025 FOBT 2025 SIGMOIDOSCOPY 2025 VIRTUAL COLONOSCOPY 2025 COVID-19 VACCINE (2024-2 6 season) 2025 HEPATITIS A VACCINES Aged Out No long er eligible based on patient's age to complete this topic HIB VACCINES Aged Out No longer eligi ble based on patient's age to complete this topic MENINGOCOCCAL VACCINES (ACWY) Aged Out No longer eligible based on patient's age to complete this topic MENINGOCOCCAL VACCINES (B) Aged Out N o longer eligible based on patient's age to complete this topic PNEUMOCOCCAL VACCINES (0-49 years) Aged Out No longer eligible based on patient's age to complete this topic Medical Devices Not on file Insurance [facility] [employer] [place] [address] [place] [address] ACO [facility]CO [facility] Care Teams Project Associate Relationship Specialty Start Date End Date Unknown, Unknown, [address] [address] PCP - General 08/20/19 Briseyda Solomon MD [email or web address] Nephrology 10/31/18 Олег Peres MD [address] [address] [place] [id number] Psychiatry 10/31/18 Dav Pulido MD [address] [address] [place] [address] [email or web address] Rheumatology 10/31/18 Additional Source Comments The information contained in this document represents components of the legal health record. It is not the complete legal health record.[facility]
--- OUTSIDE RECORDS SUMMARY | 2025-05-06 07:39 | XMS_ITS | Encounter Summary ---
Author Organization [facility] [place] [address] Care Team Providers Care Distributor Operator Name Role Phone Physician, Pcp Unknown Primary Care Provider Leonor vailable Encounter Details Date Type Department Care Team (Late st Contact Info) Description 09/25/2024 Lab Requisition [facility] - Main Lab [address] [facility] [place] [address] Jaz Vieyra PA [address] [place], [place] [id number] Gross hematuria Social History Tobacco Use Types Packs/Day Years Used Date Smoking Tobacco: Never Assessed Comments Unknown Sex and Gender Information Value Date Recorded Sex Assigned at Not on file Legal Sex Female 12:11 PM EST Gender Identity Not on file Sexual Orientation Not on file documented as of this encounter Plan of Treatment Not on file documented as of this encounter Procedures Procedure Name Priority Date/Time Associated Diagnosis Comments AP OUTSIDE CONSULT Routine 09/19/2024 12 :00 AM EST Gross hematuria documented in this encounter Results * Anatomic pathology outside consult (09/19/2024 12:00 AM EST) Final Diagnosis A. Urine, Voided, ([id number]): Negative for high grade urothelial carcinoma. Results of UroVysion fluorescence in situ hybridization (FISH) testing: CEP3: Normal CEP7: Normal CEP17: Normal LSI 9p21: Normal Interpretation: Normal profile Controls stained appropriately. Note: The results are intended as a screening device and should be interpreted in association with other clinical and pathological findings. 10/03/2024 5:20 PM EDT [facility] Clinical Information Gross hematuria R31.0 Urine Cytology/FISH (now) 10/03/2024 5:20 PM EDT [facility] Gross Description A. Urine, Voided, ([id number]): Received one ThinPrep slide for cytology and one ThinPrep slide for UroVysion FISH 10/03/2024 5:20 PM EDT [facility] Disclaimer Unless otherwise specified, all tissue is 10% NB formalin fixed and paraffin embedded. Technical pathology services provided by [facility] at [address] [place] [address] [address], [place] [address] (CLIA #[id number]/Tamara Walsh MD, Machine Binding Folder) 10/03/2024 5:20 PM EDT [facility] Tissue Urine specimen from urethra / Unknown 09/19/2024 09/25/2024 1:50 PM EST us Jaz ZEPEDA LAB PATHOLOGY ORDERABLES Final Result [facility] [address] [place] [address], documented in this encounter Visit Diagnoses Diagnosis Gross hematuria documented in this encounter Care Teams Distributor Operator Relationship Specialty Start Date End Date Physician, Pcp Unknown PCP - General 09/25/24 documented as of this encounter
--- OUTSIDE RECORDS SUMMARY | 2025-05-06 07:39 | XMS_ITS | Encounter Summary ---
Author Organization [facility] [place] [address] Care Team Providers Care Senior Power Plant Operator Name Role Phone Physician, Pcp Unknown Primary Care Provider Leonor vailable Encounter Details Date Type Department Care Team (Late st Contact Info) Description 02/05/2025 Lab Requisition [facility] - Main Lab [address] [facility] [place] [address] Jimbo Roman MD [address] [place] [address] Urinary tract infection, site not specified Social History Tobacco Use Types Packs/Day Years Used Date Smoking Tobacco: Never Assessed Interpersonal Safety Answer Date Record ed Physical Abuse Unrecognized value 02/07/2025 Verbal Abuse Unrecognized value 02/07/2025 Comments Unknown Sex and Gender Information Value Date Recorded Sex Assigned at Not on file Legal Sex Female 12:11 PM EST Gender Identity Not on file Sexual Orientation Not on file documented as of this encounter Plan of Treatment Not on file documented as of this encounter Procedures Procedure Name Priority Date/Time Associated Diagnosis Comments CULTURE URINE Routine 02/05/2025 12:00 AM EDT Urinary tract infection, site not specified documented in this encounter Results * Culture urine (02/05/2025 12:00 AM EDT) Culture, Urine <10,000 cfu/ml, insignificant count, no further workup. 02/06/2025 2:07 PM EDT [facility] Urine Urine specimen obtained by clean catch procedure / Unknown 02/05/2025 02/05/2025 5:54 PM EDT us Jimbo Roman MD LAB MICROBIOLOGY - GE NERAL ORDERABLES Final Result [facility] [address] [place] [address], documented in this encounter Visit Diagnoses Diagnosis Urinary tract infection, site not specified documented in this encounter Care Teams Senior Power Plant Operator Relationship Specialty Start Date End Date Physician, Pcp Unknown PCP - General 09/25/24 documented as of this encounter
--- OUTSIDE RECORDS SUMMARY | 2025-05-06 07:39 | XMS_ITS | Clinical Summary ---
Author Organization Patient Business Ser [facility] [place] Address [address] [place] [address] Care Team Providers Care Octave Board Assembler Name Role Phone Physician, Pcp Unknown Primary Care Provider Leonor vailable Allergies Active Allergy Reactions Criticality Noted Date Comments Doxycycline Rash Low 02/07/2025 Ibuprofen Nausea And Vomiting Low 01/20/2025 Levofloxacin Rash Low 01/20/2025 Nifedipine Headache Low 01/20/2025 Oxycodone Nausea And Vomiting Low 01/20/2025 Promethazine Muscular Issues Medium 01/20/2025 Dystonic reaction Medications pantoprazole (PROTONIX) 20 mg EC tablet Take 1 tablet (20 mg total) by mouth 2 (two) times a day. 4 Active FLUoxetine (PROzac) 40 mg capsule 1 capsule (40 mg total). 5 Active FLUoxetine (PROzac) 20 mg capsule Take 1 capsule (20 mg total) by mouth 1 (one) time each day. 5 Active busPIRone (BUSPAR) 15 mg tablet Take 1 tablet (15 mg total) by mouth 3 (three) times a day. 5 Active desvenlafaxine succinate (PRISTIQ) 50 mg 24 hr tablet Take 1 tablet (50 mg total) by mouth 1 (one) time each day. 5 Active cyclobenzaprine (FLEXERIL) 5 mg tablet Take 1 tablet (5 mg total) by mouth 3 (three) times a day if needed. for spasms 4 Active gabapentin (NEURONTIN) 300 mg capsule Take 2 capsules (600 mg total) by mouth 3 (three) times a day. 5 Active potassium citrate (UROCIT-K) 10 mEq (1,080 mg) CR tablet Take 3 tablets (30 mEq total) by mouth 3 (three) times a day with meals. Do not crush, chew, or split. Active hydroCHLOROthiazide (HYDRODIURIL) 25 mg tablet Take 1 tablet (25 mg total) by mouth 1 (one) time each day in the morning. 5 Active ondansetron ODT (ZOFRAN-ODT) 4 mg disintegrating tablet 1 tablet (4 mg total) every 8 (eight) hours if needed. 4 Active prazosin (MINIPRESS) 1 mg capsule Take 1 capsule (1 mg total) by mouth at bedtime. at bedtime 5 Active amLODIPine (NORVASC) 5 mg tablet Take 1 tablet (5 mg total) by mouth 1 (one) time each day. 4 Active diclofenac (VOLTAREN) 75 mg EC tablet Take 1 tablet (75 mg total) by mouth 2 (two) times a day if needed. 4 Active traZODone (DESYREL) 100 mg tablet Take 1 tablet (100 mg total) by mouth at bedtime. at bedtime. 5 Active propranoloL (INDERAL) 10 mg tablet Take 1 tablet (10 mg total) by mouth 2 (two) times a day. 4 Active pilocarpine (SALAGEN) 7.5 mg tablet Take 1 tablet (7.5 mg total) by mouth 2 (two) times a day. 5 Active cholecalciferol (VITAMIN D-3) 50 mcg (2,000 unit) tablet Take 1 tablet (2,000 Units total) by mouth 1 (one) time each day. 5 Active levothyroxine (SYNTHROID, LEVOTHROID) 50 mcg tablet Take 1 tablet (50 mcg total) by mouth 1 (one) time each day. 4 Active ferrous sulfate (iron) 325 mg (65 mg elemental iron) tablet Take 1 tablet (325 mg total) by mouth 2 (two) times a day. Active pyridoxine (B-6) 100 mg tablet Take 1 tablet (100 mg total) by mouth 1 (one) time each day. Active magnesium oxide (MAG-OX) 400 mg magnesium tablet Take 1 tablet (400 mg total) by mouth 1 (one) time each day. Active rizatriptan (MAXALT) 5 mg tablet Take 1 tablet (5 mg total) by mouth 1 (one) time if needed for migraine. May repeat in 2 hours if unresolved. Do not exceed 30 mg in 24 hours. Active Active Problems Problem Noted Date Diagnosed Date PATTERSON (headache) 02/07/2025 HTN (hypertension) 02/07/2025 Obstructive sleep apnea syndrome 02/07/2025 Hypothyroidism 02/07/2025 Anemia 02/07/2025 Chronic renal impairment, stage 3 (moderate) PONV (postoperative nausea and vomiting) 025 Kidney stone 02/07/2025 Encounters Date Type Department Care Team Description 02/07/2025 8:15 AM EDT Anesthesia Event [facility] [address] [place] [address] [phone] Kimberly Briones MD Barnes, Tyanna R, CRNA 02/07/2025 8:15 AM EDT - 02/07/2025 9:00 AM EDT Surgery [facility] [address] [place] [address] [phone] Jimbo Roman MD ESWL LEFT [[id number] (CPT )] 02/07/2025 6:53 AM EDT - 02/07/2025 10:05 AM EDT Hospital Encounter [facility] [place] [address] [place] [address] [phone] Jimbo Roman MD Discharge Disposition: Home or Self Care 02/05/2025 Lab Requisition [facility] [address] [facility] [place] [id number] Jimbo Roman MD Urinary tract infection, site not specified from Last 3 Months Surgical History Surgery Date Site/Laterality Comments KIDNEY STONE SURGERY MULTIPE LITHOTRIPSY HYSTERECTOMY CHOLECYSTECTOMY MOUTH SURGERY TEETH EXTRACTION AND JAW SURGERY SECTION, LOW TRANSVERSE Medical History Medical History Date Comments PONV (postoperative nausea and vomiting) Adverse effect of anesthesia DYS WHITNEY REACTION Hypothyroidism Hypertension Migraines Depression Anxiety Arthritis RHEUMATOID Anemia Chronic kidney disease Sleep apnea Social History Tobacco Use Types Packs/Day Years Used Date Smoking Tobacco: Never Smokeless Tobacco: Never Tobacco Cessation:Counseling Given: Not Answered Alcohol Use Standard Drinks/Week Comments Never 0 (1 standard drink = 0.6 oz pur e alcohol) Interpersonal Safety Answer Date Record ed Physical Abuse Unrecognized value 02/07/2025 Verbal Abuse Unrecognized value 02/07/2025 Comments Unknown Sex and Gender Information Value Date Recorded Sex Assigned at Not on file Legal Sex Female 12:11 PM EST Gender Identity Not on file Sexual Orientation Not on file Obstetrics History Last Filed Vital Signs Vital Sign Reading Time Taken Comments Blood Pressure 113/86 02/07/2025 9:11 AM EDT Pulse 73 02/07/2025 9:11 AM EDT Temperature 35.8 C (96.5 F) 02/07/2025 9:00 AM EDT Respiratory Rate 18 02/07/2025 9:00 AM EDT Oxygen Saturation 98% 02/07/2025 9:11 AM EDT Inhaled Oxygen Concentration - - Weight 71.7 kg (158 lb) 02/07/2025 7:17 AM EDT Height 160 cm (5' 3 ) 02/07/2025 7:17 AM EDT Body Mass Index 27.99 02/07/2025 7:17 AM EDT Plan of Treatment Health Maintenance Due Date Last Done Comments Breast Cancer Screening 1980 Colorectal Cancer Screening: Colonoscopy 1980 Hepatitis B Vaccines (1 of 3 - 19+ 3-dose series) 1999 Cervical Cancer Screening: P ap Smear 2001 HPV Vaccines (1 - 3-dose SCD M series) 2007 Depression Screening 07/24/2024 Cholesterol Screening (Lipid Panel) 09/26/2024 HIV Screening 09/26/2024 Hepatitis C Screening 09/26/2024 Social Influencers of Health Screening 09/26/2024 Hypertension/CHF/CAD Annual BMP Blood Test 01/21/2025 COVID-19 Vaccine ( - 2023-2 5 season) 2025 Influenza Vaccine (#1) 2025 DTaP,Tdap,and Td Vaccines (2 - Td or Tdap) 02/05/2029 02/05/2019 RSV Immunization Adult Patie nts (1 - 1-dose 75+ series) 2055 HIB Vaccines Aged Out No longer eligi ble based on patient's age to complete this topic Hepatitis A Vaccines Aged Out No long er eligible based on patient's age to complete this topic IPV Vaccines Aged Out No longer eligi ble based on patient's age to complete this topic MMR Vaccines Aged Out No longer eligi ble based on patient's age to complete this topic Meningococcal ACWY Vaccine Aged Out N o longer eligible based on patient's age to complete this topic Meningococcal B Vaccine Aged Out No l onger eligible based on patient's age to complete this topic Pneumococcal Vaccine: Pediat rics (0 to 5 Years) and At-Risk Patients (6 to 49 Years) Aged Out No longer eligi ble based on patient's age to complete this topic RSV Immunization Patients Un grace 20 months Aged Out No longer eligible b ased on patient's age to complete this topic Varicella Vaccines Aged Out No longer eligible based on patient's age to complete this topic Procedures Procedure Name Priority Date/Time Associated Diagnosis Comments CT LITHOTRIPSY EXTRACORPOREAL SHOCK WAVE 02/07/2025 8:13 AM EDT Calculus of kidney CULTURE URINE Routine 02/05/2025 12:00 AM EDT Urinary tract infection, site not specified from Last 3 Months Results * Culture urine (02/05/2025 12:00 AM EDT) Culture, Urine <10,000 cfu/ml, insignificant count, no further workup. 02/06/2025 2:[address] [facility] Urine Urine specimen obtained by clean catch procedure / Unknown 02/05/2025 02/05/2025 5:54 PM EDT us Jimbo Roman MD LAB MICROBIOLOGY - GE NERAL ORDERABLES Final Result [facility] [address] [place] [address], [place] [phone] from Last 3 Months Insurance [facility] Care Teams Octave Board Assembler Relationship Specialty Start Date End Date Physician, Pcp Unknown PCP - General 09/25/24
== END 2025-05-06 08:05 | disposition home or self-care (01) ==
LOC: HO.HSMS 07:37
PROVIDERS: PCP Family Medicine; Visit Provider Psychiatry & Neurology Neurology
DX: G43.719 Chronic migraine without aura, intractable, without status migrainosus (principal)
CPT/HCPCS: 64615

== ENCOUNTER → 2025-05-06 07:36 | Outpatient (BNVA) | payer OTHER, SELFPAY | PROVIDERS: PCP Family Medicine; Visit Provider Psychiatry & Neurology Neurology | DX: G43.719 Chronic migraine without aura, intractable, without status migrainosus (principal) | CPT/HCPCS: 64615; 99211; J0585 ==